=== PATIENT | female | born 1985 | race Caucasian/White ===

== ENCOUNTER 2020-09-18 04:22 | Inpatient (IN) | payer SELFPAY ==
[2020-09-18] VITALS (68 sets, daily range): BP systolic 66–202; BP diastolic 41–105; PULSE 93–131; RESP 14–36; TEMP 37–37.7; O2SAT 64–100; BMI 37.8
--- NOTE | 2020-09-18 04:27 | ECG_ITS ---
[facility] Test Date: 2020-09-18 Pat Name: Shavon Ross Department: Room: Gender: Female Rn Imcu: : 1985 Requested By: Ana Tellez Order Number: [id number] Rao MD: MIMI STRATTON Measurements Intervals [place] Rate: 122 P: 78 TN: 176 QRS: 62 QRSD: 81 T: 63 QT: 304 QTc: 434 Interpretive Statements SINUS TACHYCARDIA ABNORMAL RHYTHM ECG Compared to ECG 03/05/2018 16:36:58 Sinus rhythm no longer present Electronically Signed On 09-18-2020 17:30:57 ISOLATION WASHER by MIMI STRATTON [id number]
--- NOTE | 2020-09-18 04:27 | XRR_ITS ---
PROCEDURE INFORMATION: Exam: XR Chest, 1 View Exam date and time: 09/18/2020 4:35 AM Age: 35 years old Clinical indication: Condition or disease; Lung condition and disease; Asthma; Severity not specified; Shortness of breath; Additional info: SOB TECHNIQUE: Imaging protocol: XR of the chest Views: 1 view. COMPARISON: [facility] Chest 2 views 06/15/2019 1:56 PM FINDINGS: Lungs: Unremarkable. No consolidation. Pleural space: Unremarkable. No pleural effusion. No pneumothorax. Heart/Mediastinum: Unremarkable. No cardiomegaly. Bones/joints: Unremarkable. XR/XR chest 1V portable [id number] IMPRESSION: No acute findings.
--- NOTE | 2020-09-18 04:29 | ED_ITS ---
Documented by User: Ana Tellez MD 09/18/20 05:48 HPI - SOB/Dyspnea General: Chief Complaint: Shortness of Breath/Dyspnea Stated Complaint: asthma attack Time Seen by Provider: 09/18/20 04:24 Source: patient Mode of arrival: ambulatory Limitations: no limitations History of Present Illness: HPI Narrative: 35-year-old female has a history of asthma. She states she had increased shortness of breath and wheezing starting overnight. States she had a slight cough and congestion over the last 2 days. Patient is tachypneic here and in mild to moderate distress. She does have wheezing and oxygen level here was 90% on room air and she is currently on 2 L. She denies any fever. She states she is taking her rescue inhaler at home with minimal relief. MD elicited complaint: shortness of breath Associated symptoms: Deny abdominal pain, chest pain, fever(s), nausea or vomiting Review of Systems Const: Denies: fever(s), chills, body aches or change in appetite Eyes: Denies: blurry vision or eye discomfort ENMT: Denies: throat pain or dental pain Card: Denies: chest pain Resp: Reports: dyspnea and wheezing GI: Denies: abdominal pain, nausea, vomiting or diarrhea : Denies: dysuria Musc: Denies: neck pain or back pain Skin/Breast: Denies: rash Neuro: Denies: headache(s) Psych: Denies: depression Jamil/Lymph: Denies: easy bruising All/Imm: Denies: urticaria PFSH ED PFSH: Social History (Updated 09/18/20 @ 11:18 by Audrey Yusuf [facility]) Smoking and tobacco status: current every day smoker Alcohol intake: current Alcohol intake frequency: 3 or more drinks per day Alcohol type: beer Alcohol use comment: 7 beers per night Lives independently: Yes Household members: spouse and children Marital status: Physical Exam Const: COMMON NORMALS: patient oriented x3 GENERAL APPEARANCE: in distress HENMT: COMMON NORMALS: normocephalic and atraumatic HEAD & SCALP: normocephalic and atraumatic Eye: COMMON NORMALS: Equal, round and reactive pupils present and EOMs intact bilaterally PUPIL: Yes Equal, round and reactive pupils present Neck/C-Spine: COMMON NORMALS: full ROM and supple Chest: COMMONS NORMALS: normal inspection of the chest and normal palpation of entire chest wall Resp: COMMON NORMALS: No retractions and No use of accessory muscles EFFORT & INSPECTION: Yes tachypneic and Yes respiratory distress AUSCULTATION: wheezes Cardio: COMMON NORMALS: regular rate, regular rhythm and No murmurs present (Cardio) RATE: regular rate RHYTHM: regular rhythm GI: COMMON NORMALS: Normal to inspection, nondistended, normoactive bowel sounds present, Soft to palpation, non-tender and no masses PALPATION: Yes Soft to palpation Extremity: COMMON NORMALS: normal to inspection and full ROM Neuro: COMMON NORMALS: patient oriented x3, moves all extremities and no focal motor deficits Psych: COMMON NORMALS: mental status grossly normal, Normal thought process present and cooperative THOUGHT PROCESS: Normal thought process present Skin: COMMON NORMALS: no rashes or lesions noted and no wounds GENERAL SKIN EXAM: no rashes or lesions noted Course Vital Signs: Vital signs: Vital Signs Pulse Rate 93 09/18/20 11:11 Respiratory Rate 18 09/18/20 11:11 Blood Pressure 123/73 09/18/20 11:11 Pulse Oximetry 97 09/18/20 11:11 MDM - SOB/Dyspnea MDM Narrative: Medical decision making narrative: Shavon presents here with an asthma exacerbation. Her exacerbation is significant and she has had minimal improvement after breathing treatments. Patient is still pending a D-dimer and is signed out to dr. hearn Patient was given Solu-Medrol here as well. Patient will likely require admission. Lab Data: Labs: Lab Results 09/18/20 09/18/20 09/18/20 Range/Units 04:29 04:29 04:29 WBC 11.0 H (4.0-10.0) 10^3/ uL RBC 4.61 (4.1-5.3) 10^6/u L Hgb 9.4 L (11.5-15.3) g/dL Hct 34.0 L (37.0-47.0) % MCV 73.8 L (81-99) fL MCH 20.4 L (28.0-34.0) pg MCHC 27.6 L (30.0-36.0) g/dL RDW 15.1 (12.1-15.1) % Plt Count 321 (130-400) 10^3/c mm MPV 8.9 (7.4-10.4) fL Neut % (Auto) 86.0 % Lymph % (Auto) 6.9 % [place] % (Auto) 4.8 % Eos % (Auto) 1.2 % Baso % (Auto) 0.7 % Neut # (Auto) 9.47 H (1.8-7.7) 10^3/u L Lymph # (Auto) 0.8 (0.8-4.8) 10^3/u L [place] # (Auto) 0.5 (0.2-0.9) 10^3/u L Eos # (Auto) 0.1 (0.0-0.8) 10^3/u L Baso # (Auto) 0.1 (0.0-0.1) 10^3/u L Nucleated RBC % (a uto) 0 % Nucleated RBCs # 0.0 /100WBC D-Dimer 0.78 H (0-0.59) ug/mIFE U Specimen Type Sample Site ABG pH (7.35-7.45) ABG pCO2 (35-45) mmHg ABG pO2 (80.0-100.0) mmH g ABG HCO3 (22-26) mmol/L ABG O2 Saturation ABG Base Excess (-2.0-2.0) mmol/ L Pritesh Test A-a O2 Gradient (5-10) mmHg Hematocrit (37-47) % Hgb O2 Saturation (95-100) % Carboxyhemoglobin (0.4-20.1) %THgb Methemoglobin (0.4-1.5) % Total Hemoglobin (12-16) g/dL Ionized Calcium (1.1-1.4) mmol/L O2 Delivery Device O2 Liters/Min % FiO2 % Tidal Volume PEEP cmH20 Artificial Log Machine Operator ID Sodium 138 (136-145) mmol/L Potassium 3.9 (3.5-5.1) mmol/L Chloride 104 (98-107) mmol/L Carbon Dioxide 19 L (22-29) mmol/L Anion Gap 18.9 (5-19) BUN 11 (6-20) mg/dL Creatinine 0.6 (0.5-0.9) mg/dL GFR Calculation 112.5 (90-130) mL/min Glucose 160 H (65-115) mg/dL Calculated Osmolal ity 289 (285-295) mOsm/k g Calcium 8.6 (8.5-10.5) mg/dL Magnesium (1.7-2.3) mg/dL Total Bilirubin 0.2 (0.15-1.2) mg/dL AST 12 (0-32) U/L ALT 14 (0-33) U/L Alkaline Phosphata se 99 (35-105) IU/L NT-Pro-B Natriuret Pep 39 (0-125) pg/mL Total Protein 7.8 (6.6-8.7) g/dL Albumin 4.7 (3.5-5.2) g/dL Globulin 3.1 (1.3-4.6) g/dL Influenza Type A A g (Negative) Influenza Type B A g (Negative) SARS-CoV-2 Ag (Rap id) (Negative) 09/18/20 09/18/20 09/18/20 Range/Units 04:29 04:32 04:50 WBC (4.0-10.0) 10^3/ uL RBC (4.1-5.3) 10^6/u L Hgb (11.5-15.3) g/dL Hct (37.0-47.0) % MCV (81-99) fL MCH (28.0-34.0) pg MCHC (30.0-36.0) g/dL RDW (12.1-15.1) % Plt Count (130-400) 10^3/c mm MPV (7.4-10.4) fL Neut % (Auto) % Lymph % (Auto) % [place] % (Auto) % Eos % (Auto) % Baso % (Auto) % Neut # (Auto) (1.8-7.7) 10^3/u L Lymph # (Auto) (0.8-4.8) 10^3/u L [place] # (Auto) (0.2-0.9) 10^3/u L Eos # (Auto) (0.0-0.8) 10^3/u L Baso # (Auto) (0.0-0.1) 10^3/u L Nucleated RBC % (a uto) % Nucleated RBCs # /100WBC D-Dimer (0-0.59) ug/mIFE U Specimen Type Sample Site ABG pH (7.35-7.45) ABG pCO2 (35-45) mmHg ABG pO2 (80.0-100.0) mmH g ABG HCO3 (22-26) mmol/L ABG O2 Saturation ABG Base Excess (-2.0-2.0) mmol/ L Pritesh Test A-a O2 Gradient (5-10) mmHg Hematocrit (37-47) % Hgb O2 Saturation (95-100) % Carboxyhemoglobin (0.4-20.1) %THgb Methemoglobin (0.4-1.5) % Total Hemoglobin (12-16) g/dL Ionized Calcium (1.1-1.4) mmol/L O2 Delivery Device O2 Liters/Min % FiO2 % Tidal Volume PEEP cmH20 Artificial Log Machine Operator ID Sodium (136-145) mmol/L Potassium (3.5-5.1) mmol/L Chloride (98-107) mmol/L Carbon Dioxide (22-29) mmol/L Anion Gap (5-19) BUN (6-20) mg/dL Creatinine (0.5-0.9) mg/dL GFR Calculation (90-130) mL/min Glucose (65-115) mg/dL Calculated Osmolal ity (285-295) mOsm/k g Calcium (8.5-10.5) mg/dL Magnesium 2.2 (1.7-2.3) mg/dL Total Bilirubin (0.15-1.2) mg/dL AST (0-32) U/L ALT (0-33) U/L Alkaline Phosphata se (35-105) IU/L NT-Pro-B Natriuret Pep (0-125) pg/mL Total Protein (6.6-8.7) g/dL Albumin (3.5-5.2) g/dL Globulin (1.3-4.6) g/dL Influenza Type A A g Negative (Negative) Influenza Type B A g Negative (Negative) SARS-CoV-2 Ag (Rap id) Negative (Negative) 09/18/20 09/18/20 Range/Units 06:35 09:00 WBC (4.0-10.0) 10^3/ uL RBC (4.1-5.3) 10^6/u L Hgb (11.5-15.3) g/dL Hct (37.0-47.0) % MCV (81-99) fL MCH (28.0-34.0) pg MCHC (30.0-36.0) g/dL RDW (12.1-15.1) % Plt Count (130-400) 10^3/c mm MPV (7.4-10.4) fL Neut % (Auto) % Lymph % (Auto) % [place] % (Auto) % Eos % (Auto) % Baso % (Auto) % Neut # (Auto) (1.8-7.7) 10^3/u L Lymph # (Auto) (0.8-4.8) 10^3/u L [place] # (Auto) (0.2-0.9) 10^3/u L Eos # (Auto) (0.0-0.8) 10^3/u L Baso # (Auto) (0.0-0.1) 10^3/u L Nucleated RBC % (a uto) % Nucleated RBCs # /100WBC D-Dimer (0-0.59) ug/mIFE U Specimen Type Arterial Arterial Sample Site Radial, left Radial, left ABG pH 7.31 L 7.09 L* (7.35-7.45) ABG pCO2 42.6 81.7 H* (35-45) mmHg ABG pO2 67.1 L 193.0 H (80.0-100.0) mmH g ABG HCO3 21.5 L 24.6 (22-26) mmol/L ABG O2 Saturation 99.8 ABG Base Excess -4.5 L -5.7 L (-2.0-2.0) mmol/ L Pritesh Test Pos Pos A-a O2 Gradient 18.1 H (5-10) mmHg Hematocrit 28.8 L 27.0 L (37-47) % Hgb O2 Saturation 90.4 L 97.1 (95-100) % Carboxyhemoglobin 1.9 1.6 (0.4-20.1) %THgb Methemoglobin < 0.0 L 1.0 (0.4-1.5) % Total Hemoglobin 9.4 L 8.8 L (12-16) g/dL Ionized Calcium 1.2 (1.1-1.4) mmol/L O2 Delivery Device Nc Vent O2 Liters/Min 5.0 % FiO2 60.0 % Tidal Volume 0.40 PEEP 8.0 cmH20 Artificial Log Machine Operator ID [email or web address] [email or web address] Sodium 139.0 (136-145) mmol/L Potassium 4.5 (3.5-5.1) mmol/L Chloride (98-107) mmol/L Carbon Dioxide (22-29) mmol/L Anion Gap (5-19) BUN (6-20) mg/dL Creatinine (0.5-0.9) mg/dL GFR Calculation (90-130) mL/min Glucose 174.0 H (65-115) mg/dL Calculated Osmolal ity (285-295) mOsm/k g Calcium (8.5-10.5) mg/dL Magnesium (1.7-2.3) mg/dL Total Bilirubin (0.15-1.2) mg/dL AST (0-32) U/L ALT (0-33) U/L Alkaline Phosphata se (35-105) IU/L NT-Pro-B Natriuret Pep (0-125) pg/mL Total Protein (6.6-8.7) g/dL Albumin (3.5-5.2) g/dL Globulin (1.3-4.6) g/dL Influenza Type A A g (Negative) Influenza Type B A g (Negative) SARS-CoV-2 Ag (Rap id) (Negative) Imaging Data^: CXR: Attestation: I personally reviewed and interpreted this imaging study as follows: My impression: no acute abnormality EKG Data^: EKG 1: Attestation: I personally reviewed and interpreted this EKG as follows: EKG Interpretation Date: 09/18/20 EKG interpretation time: 04:31 Interpretation: sinus tach hr [address] or t wave abnormalities qrs 81 qtc 377 Discharge Plan Discharge Patient Disposition: Admitted As Inpatient Admit Provider: Dougie Summers Clinical Impression: Asthma with exacerbation, Acute hypoxemic respiratory failure Clinical Impression: (Ruled Out): Congestive heart failure Condition: Stable Sign Out Sign Out Data: Patient Sign Out occurred on 09/18/20 at 06:13. Patient's care was discussed, and care was transferred from to Felipe Hearn DO. Coding Level of Care Code ED [employer] for Chg Fwd Exam Comprehensive Documented by User: Felipe Hearn DO 09/18/20 11:36 HPI - SOB/Dyspnea General: Chief Complaint: Shortness of Breath/Dyspnea Stated Complaint: asthma attack Time Seen by Provider: 09/18/20 04:24 PFS ED PFSH: Social History (Updated 09/18/20 @ 11:18 by [facility] Smoking and tobacco status: current every day smoker Alcohol intake: current Alcohol intake frequency: 3 or more drinks per day Alcohol type: beer Alcohol use comment: 7 beers per night Lives independently: Yes Household members: spouse and children Marital status: Procedures Intubation Time out performed: Yes sedative: Etomidate paralytic: Succinylcholine Laryngoscope: fiber optic video scope Assist Device Used: fiber optic device ET Tube Size: 8 ET Tube Uncuffed: No Tube Secured Depth (cm): 22 Tube Secured Location: teeth Tube Placement Confirmation: visualized tube passing through cords, equal breath sounds bilaterally, no breath sounds over epigastrium and confirmation by capnometry Patient Tolerated Procedure: well Intubation Complications: none Course Vital Signs: Vital signs: Vital Signs Pulse Rate 93 09/18/20 11:11 Respiratory Rate 18 09/18/20 11:11 Blood Pressure 123/73 09/18/20 11:11 Pulse Oximetry 97 09/18/20 11:11 MDM - SOB/Dyspnea MDM Narrative: Medical decision making narrative: Patient progressively worsened with a PCO2 in the 60s despite a respiratory rate in the 40s and 50s she was electively intubated we discussed with her prior she wished to proceed. RSI and ablation with etomidate and succinylcholine patient tolerated well initially improved but her second ABG was actually worsened with a pH of 7.08 and a PCO2 in the 80s patient given further nebulizer treatments magnesium sulfate Solu-Medrol and in conjunction with Dr. Joshua Westbrook adjustments were made to her ventilator. Patient will be admitted for acute asthma exacerbation via Dr. Summers he has written order CT of the chest reviewed as well Lab Data: Labs: Lab Results 09/18/20 09/18/20 09/18/20 Range/Units 04:29 04:29 04:29 WBC 11.0 H (4.0-10.0) 10^3/ uL RBC 4.61 (4.1-5.3) 10^6/u L Hgb 9.4 L (11.5-15.3) g/dL Hct 34.0 L (37.0-47.0) % MCV 73.8 L (81-99) fL MCH 20.4 L (28.0-34.0) pg MCHC 27.6 L (30.0-36.0) g/dL RDW 15.1 (12.1-15.1) % Plt Count 321 (130-400) 10^3/c mm MPV 8.9 (7.4-10.4) fL Neut % (Auto) 86.0 % Lymph % (Auto) 6.9 % [place] % (Auto) 4.8 % Eos % (Auto) 1.2 % Baso % (Auto) 0.7 % Neut # (Auto) 9.47 H (1.8-7.7) 10^3/u L Lymph # (Auto) 0.8 (0.8-4.8) 10^3/u L [place] # (Auto) 0.5 (0.2-0.9) 10^3/u L Eos # (Auto) 0.1 (0.0-0.8) 10^3/u L Baso # (Auto) 0.1 (0.0-0.1) 10^3/u L Nucleated RBC % (a uto) 0 % Nucleated RBCs # 0.0 /100WBC D-Dimer 0.78 H (0-0.59) ug/mIFE U Specimen Type Sample Site ABG pH (7.35-7.45) ABG pCO2 (35-45) mmHg ABG pO2 (80.0-100.0) mmH g ABG HCO3 (22-26) mmol/L ABG O2 Saturation ABG Base Excess (-2.0-2.0) mmol/ L Pritesh Test A-a O2 Gradient (5-10) mmHg Hematocrit (37-47) % Hgb O2 Saturation (95-100) % Carboxyhemoglobin (0.4-20.1) %THgb Methemoglobin (0.4-1.5) % Total Hemoglobin (12-16) g/dL Ionized Calcium (1.1-1.4) mmol/L O2 Delivery Device O2 Liters/Min % FiO2 % Tidal Volume PEEP cmH20 Artificial Log Machine Operator ID Sodium 138 (136-145) mmol/L Potassium 3.9 (3.5-5.1) mmol/L Chloride 104 (98-107) mmol/L Carbon Dioxide 19 L (22-29) mmol/L Anion Gap 18.9 (5-19) BUN 11 (6-20) mg/dL Creatinine 0.6 (0.5-0.9) mg/dL GFR Calculation 112.5 (90-130) mL/min Glucose 160 H (65-115) mg/dL Calculated Osmolal ity 289 (285-295) mOsm/k g Calcium 8.6 (8.5-10.5) mg/dL Magnesium (1.7-2.3) mg/dL Total Bilirubin 0.2 (0.15-1.2) mg/dL AST 12 (0-32) U/L ALT 14 (0-33) U/L Alkaline Phosphata se 99 (35-105) IU/L NT-Pro-B Natriuret Pep 39 (0-125) pg/mL Total Protein 7.8 (6.6-8.7) g/dL Albumin 4.7 (3.5-5.2) g/dL Globulin 3.1 (1.3-4.6) g/dL Influenza Type A A g (Negative) Influenza Type B A g (Negative) SARS-CoV-2 Ag (Rap id) (Negative) 09/18/20 09/18/20 09/18/20 Range/Units 04:29 04:32 04:50 WBC (4.0-10.0) 10^3/ uL RBC (4.1-5.3) 10^6/u L Hgb (11.5-15.3) g/dL Hct (37.0-47.0) % MCV (81-99) fL MCH (28.0-34.0) pg MCHC (30.0-36.0) g/dL RDW (12.1-15.1) % Plt Count (130-400) 10^3/c mm MPV (7.4-10.4) fL Neut % (Auto) % Lymph % (Auto) % [place] % (Auto) % Eos % (Auto) % Baso % (Auto) % Neut # (Auto) (1.8-7.7) 10^3/u L Lymph # (Auto) (0.8-4.8) 10^3/u L [place] # (Auto) (0.2-0.9) 10^3/u L Eos # (Auto) (0.0-0.8) 10^3/u L Baso # (Auto) (0.0-0.1) 10^3/u L Nucleated RBC % (a uto) % Nucleated RBCs # /100WBC D-Dimer (0-0.59) ug/mIFE U Specimen Type Sample Site ABG pH (7.35-7.45) ABG pCO2 (35-45) mmHg ABG pO2 (80.0-100.0) mmH g ABG HCO3 (22-26) mmol/L ABG O2 Saturation ABG Base Excess (-2.0-2.0) mmol/ L Pritesh Test A-a O2 Gradient (5-10) mmHg Hematocrit (37-47) % Hgb O2 Saturation (95-100) % Carboxyhemoglobin (0.4-20.1) %THgb Methemoglobin (0.4-1.5) % Total Hemoglobin (12-16) g/dL Ionized Calcium (1.1-1.4) mmol/L O2 Delivery Device O2 Liters/Min % FiO2 % Tidal Volume PEEP cmH20 Artificial Log Machine Operator ID Sodium (136-145) mmol/L Potassium (3.5-5.1) mmol/L Chloride (98-107) mmol/L Carbon Dioxide (22-29) mmol/L Anion Gap (5-19) BUN (6-20) mg/dL Creatinine (0.5-0.9) mg/dL GFR Calculation (90-130) mL/min Glucose (65-115) mg/dL Calculated Osmolal ity (285-295) mOsm/k g Calcium (8.5-10.5) mg/dL Magnesium 2.2 (1.7-2.3) mg/dL Total Bilirubin (0.15-1.2) mg/dL AST (0-32) U/L ALT (0-33) U/L Alkaline Phosphata se (35-105) IU/L NT-Pro-B Natriuret Pep (0-125) pg/mL Total Protein (6.6-8.7) g/dL Albumin (3.5-5.2) g/dL Globulin (1.3-4.6) g/dL Influenza Type A A g Negative (Negative) Influenza Type B A g Negative (Negative) SARS-CoV-2 Ag (Rap id) Negative (Negative) 09/18/20 09/18/20 Range/Units 06:35 09:00 WBC (4.0-10.0) 10^3/ uL RBC (4.1-5.3) 10^6/u L Hgb (11.5-15.3) g/dL Hct (37.0-47.0) % MCV (81-99) fL MCH (28.0-34.0) pg MCHC (30.0-36.0) g/dL RDW (12.1-15.1) % Plt Count (130-400) 10^3/c mm MPV (7.4-10.4) fL Neut % (Auto) % Lymph % (Auto) % [place] % (Auto) % Eos % (Auto) % Baso % (Auto) % Neut # (Auto) (1.8-7.7) 10^3/u L Lymph # (Auto) (0.8-4.8) 10^3/u L [place] # (Auto) (0.2-0.9) 10^3/u L Eos # (Auto) (0.0-0.8) 10^3/u L Baso # (Auto) (0.0-0.1) 10^3/u L Nucleated RBC % (a uto) % Nucleated RBCs # /100WBC D-Dimer (0-0.59) ug/mIFE U Specimen Type Arterial Arterial Sample Site Radial, left Radial, left ABG pH 7.31 L 7.09 L* (7.35-7.45) ABG pCO2 42.6 81.7 H* (35-45) mmHg ABG pO2 67.1 L 193.0 H (80.0-100.0) mmH g ABG HCO3 21.5 L 24.6 (22-26) mmol/L ABG O2 Saturation 99.8 ABG Base Excess -4.5 L -5.7 L (-2.0-2.0) mmol/ L Pritesh Test Pos Pos A-a O2 Gradient 18.1 H (5-10) mmHg Hematocrit 28.8 L 27.0 L (37-47) % Hgb O2 Saturation 90.4 L 97.1 (95-100) % Carboxyhemoglobin 1.9 1.6 (0.4-20.1) %THgb Methemoglobin < 0.0 L 1.0 (0.4-1.5) % Total Hemoglobin 9.4 L 8.8 L (12-16) g/dL Ionized Calcium 1.2 (1.1-1.4) mmol/L O2 Delivery Device Nc Vent O2 Liters/Min 5.0 % FiO2 60.0 % Tidal Volume 0.40 PEEP 8.0 cmH20 Artificial Log Machine Operator ID [email or web address] [email or web address] Sodium 139.0 (136-145) mmol/L Potassium 4.5 (3.5-5.1) mmol/L Chloride (98-107) mmol/L Carbon Dioxide (22-29) mmol/L Anion Gap (5-19) BUN (6-20) mg/dL Creatinine (0.5-0.9) mg/dL GFR Calculation (90-130) mL/min Glucose 174.0 H (65-115) mg/dL Calculated Osmolal ity (285-295) mOsm/k g Calcium (8.5-10.5) mg/dL Magnesium (1.7-2.3) mg/dL Total Bilirubin (0.15-1.2) mg/dL AST (0-32) U/L ALT (0-33) U/L Alkaline Phosphata se (35-105) IU/L NT-Pro-B Natriuret Pep (0-125) pg/mL Total Protein (6.6-8.7) g/dL Albumin (3.5-5.2) g/dL Globulin (1.3-4.6) g/dL Influenza Type A A g (Negative) Influenza Type B A g (Negative) SARS-CoV-2 Ag (Rap id) (Negative) Critical Care Time Critical Care Time: Critical Care Time: Yes Total Critical Care Time: 245 Attestation: This case had a high probability of a clinically significant, sudden, or life threatening deterioration of this patient's condition which required my full and direct attention, intervention and personal management. Discharge Plan Discharge Patient Disposition: Admitted As Inpatient Admit Provider: Dougie Summers Clinical Impression: Asthma with exacerbation, Acute hypoxemic respiratory failure Clinical Impression: (Ruled Out): Congestive heart failure Condition: Stable Sign Out Sign Out Data: Patient Sign Out occurred on 09/18/20 at 06:13. Patient's care was discussed, and care was transferred from to Felipe Hearn DO. Coding Level of Care Code ED [employer] for Chg Fwd Exam Comprehensive
[2020-09-18 04:37] LABS: Basophils # 0.1 10^3/uL (0.0-0.1); Basophils % 0.7 %; Eosinophils # 0.1 10^3/uL (0.0-0.8); Eosinophils % 1.2 %; Hemoglobin 9.4 g/dL (11.5-15.3); Lymphocytes # 0.8 10^3/uL (0.8-4.8); Lymphocytes % 6.9 %; Mean Corpuscular HGB Conc 27.6 g/dL (30.0-36.0); Mean Corpuscular Hemoglobin 20.4 pg (28.0-34.0); Mean Corpuscular Volume 73.8 fL (81-99); Mean Platelet Volume 8.9 fL (7.4-10.4); Monocytes # 0.5 10^3/uL (0.2-0.9); Monocytes % 4.8 %; Neutrophils # 9.47 10^3/uL (1.8-7.7); Nucleated Red Blood Cells % 0 %; Platelet Count 321 10^3/cmm (130-400); Red Blood Count 4.61 10^6/uL (4.1-5.3); Red Cell Distribution Width 15.1 % (12.1-15.1)
[2020-09-18] MEDS: albuterol 8 gm MDI 4 PUFF INHALATION (04:41)
[2020-09-18] MEDS: sodium chloride 0.9% 500 ML 999 ML IV ×2 (04:48→13:28)
[2020-09-18] MEDS: ondansetron 2 mg/ML SDV 2 mL 4 MG IVP (04:52)
[2020-09-18 04:55] LABS: SARS Covid-2 Antigen Negative (Negative)
[2020-09-18 05:00] LABS: Alanine Aminotransferase 14 U/L (0-33); Albumin Level 4.7 g/dL (3.5-5.2); Alkaline Phosphatase 99 IU/L (35-105); Anion Gap 18.9 (5-19); Aspartate Amino Transferase 12 U/L (0-32); Blood Urea Nitrogen 11 mg/dL (6-20); Calcium 8.6 mg/dL (8.5-10.5); Carbon Dioxide 19 mmol/L (22-29); Chloride 104 mmol/L (98-107); Globulin 3.1 g/dL (1.3-4.6); Glomerular Filtration Rate 112.5 mL/min (90-130); Glucose 160 mg/dL (65-115); NT Pro B Type Natriuretic Pept 39 pg/mL (0-125); Osmolality Calculated 289 mOsm/kg (285-295); Potassium 3.9 mmol/L (3.5-5.1); Sodium 138 mmol/L (136-145); Total Bilirubin 0.2 mg/dL (0.15-1.2); Total Protein 7.8 g/dL (6.6-8.7)
[2020-09-18 05:38] LABS: Influenza A by IFA Negative (Negative); Influenza B by IFA Negative (Negative)
[2020-09-18 05:51] LABS: D Dimer 0.78 ug/mIFEU (0-0.59)
--- NOTE | 2020-09-18 06:14 | CT_ITS ---
WS: [id number] CTA OF THE CHEST WITH PULMONARY EMBOLISM PROTOCOL TECHNIQUE: High-resolution contrast enhanced CTA of the chest with coronal and sagittal reformatted i mages with pulmonary embolism protocol. MIP images are also reviewed. CLINICAL INFORMATION: dyspnea/elevate D dimer COMPARISON: None. DLP: 1544.[address] scans at [facility] use at least one of these dose optimization techniques: automat ed exposure control; mA and/or kV adjustment per patient size (includes targeted exams where dose is matched to clinical indication); or iterative reconstruction. FINDINGS: Lungs are well aerated. No acute pulmonary infiltrates. No focal pneumonia. No pleural fluid. Endotra cheal tube with tip above the jaciel. Enteric tube with tip in stomach. Suboptimal bolus. Proximal main pulmonary arteries are normal. Segmental pulmonary arteries appear pa tent. Subsegmental pulmonary arteries not well visualized due to suboptimal bolus and breathing artif act. No definite evidence of pulmonary embolus. Normal caliber thoracic aorta. No mediastinal or hilar lymphadenopathy. No axillary lymphadenopathy. Adrenal glands are normal. Diffuse fatty infiltration the liver. Slight asymmetric enlargement of the left thyroid lobe compared to the right. This can be followed up with ultrasound on an elective basi s. CT/CT angio chest PE protcl [id number] IMPRESSION: 1. Suboptimal bolus but no definite evidence of pulmonary embolus. Subsegmenta l pulmonary arteries not well visualized. Recommend repeat CTA chest if symptom s persist. 2. No acute pulmonary infiltrates. Lungs well aerated. 3. Endotracheal tube and enteric tube in good position. 4. Diffuse fatty infiltration liver. Notified Felipe Artis DO at 09/18/2020 9:37 AM.
[2020-09-18] MEDS: ipratropium-albuterol 3 mL Neb INHALATION ×5 (06:29→20:11)
[2020-09-18 06:45] LABS: ABG PCO2 42.6 mmHg (35-45); ABG PH Result 7.31 (7.35-7.45); Arterial Blood Gas Hematocrit 28.8 % (37-47); Base Excess ABG -4.5 mmol/L (-2.0-2.0); Blood Gas Allen Test Pos; Blood Gas Sample Site Radial, left; Blood Gas Sample Type Arterial; Carboxyhemoglobin 1.9 %THgb (0.4-20.1); HCO3 ABG 21.5 mmol/L (22-26); HGB O2 Sat 90.4 % (95-100); Methemoglobin < 0.0 % (0.4-1.5); Oxygen Device NC; PO2 ABG 67.1 mmHg (80.0-100.0); Total Hemoglobin 9.4 g/dL (12-16)
[2020-09-18] MEDS: LORazepam 2 mg/mL INJ 1 mL 1 MG IVP ×2 (07:00→17:56)
[2020-09-18] MEDS: succinylcholine 20 mg/mL SDV 10mL 100 MG IVP (07:03)
--- NOTE | 2020-09-18 07:04 | PC.NURSE ---
Patient was intubated at this time with a size 8.0 ET tube at 22 at the teeth.
[2020-09-18] MEDS: vecuronium 10 mg SDV IVP ×2 (07:07→09:15)
[2020-09-18] MEDS: propofol 1,000 MG/100 ML INJ 24 MG IV (07:10)
--- NOTE | 2020-09-18 07:14 | XRR_ITS ---
PROCEDURE INFORMATION: Exam: XR Chest, 1 View Exam date and time: 09/18/2020 7:34 AM Age: 35 years old Clinical indication: Cough and dyspnea; Patient HX: PT intubated; Additional info: Dyspnea/cough TECHNIQUE: Imaging protocol: XR of the chest Views: 1 view. COMPARISON: CR XR chest 1V portable [id number] 09/18/2020 4:34 AM FINDINGS: Tubes, catheters and devices: The endotracheal tube is above the level of the jaciel. nasogastric tube extends below the diaphragm although the location of the tip not identified as it is outside of the [id number]. Lungs: Lungs are well aerated without a focal area of consolidation. Pleural space: Unremarkable. No pleural effusion. No pneumothorax. Heart/Mediastinum: Unremarkable. No cardiomegaly. Bones/joints: Unremarkable. XR/XR chest 1V portable [id number] IMPRESSION: Lungs are well aerated without a focal area of consolidation.
[2020-09-18] MEDS: ipratropium-albuterol 3 mL Neb 6 ML INHALATION (07:28)
[2020-09-18] MEDS: iohexol 350 mg/mL 100 mL Btl IV ×2 (09:00→09:01)
[2020-09-18 09:13] LABS: Alveolar-Arterial Oxygen Gradi 18.1 mmHg (5-10); Base Excess ABG -5.7 mmol/L (-2.0-2.0); Blood Gas Allen Test Pos; Blood Gas Operator Identificat glc; Blood Gas Sample Site Radial, left; Blood Gas Sample Type Arterial; Carboxyhemoglobin 1.6 %THgb (0.4-20.1); HCO3 ABG 24.6 mmol/L (22-26); HGB O2 Sat 97.1 % (95-100); Ionized Calcium Level - ABG 1.2 mmol/L (1.1-1.4); Oxygen Device VENT; Oxygen Saturation ABG 99.8; Potassium Level - ABG 4.5 mmol/L (3.5-5.0); Total Hemoglobin 8.8 g/dL (12-16)
[2020-09-18 09:14] LABS: ABG PH Result 7.09 (7.35-7.45)
[2020-09-18 09:15] LABS: ABG PCO2 81.7 mmHg (35-45)
[2020-09-18] MEDS: EPINEPHrine 1 mg/mL INJ 0.3 MG IM (09:45)
[2020-09-18] MEDS: nitroglycerin 1 gm/inch oint Pkt 1 INCH TOPICAL (09:50)
[2020-09-18] MEDS: fentaNYL 50 mcg/mL INJ 2mL 100 MCG IVP (10:05)
[2020-09-18] MEDS: magnesium sulfate premix 2 GM/50 ML PIGGYBACK IV (10:05)
[2020-09-18] MEDS: sodium chloride 0.9% 1,000 ML 999 ML IV (10:13)
[2020-09-18 10:52] LABS: Magnesium 2.2 mg/dL (1.7-2.3)
--- NOTE | 2020-09-18 11:06 | PM.HP ---
Providers/Chief Complaint Admitting Physician: Dougie Summers MD Chief Complaint: asthma attack History of Present Illness Shavon Ross is a 35 year old female w/ h/o asthma and untreated hypertension who presented to the ED at 4 am this morning for asthma exacerbation, with SOB and wheezing. Pt stated that she felt tightness in her chest yesterday, and had slight cough and congestion for the past 2 days. She believes her home air freshner had been irritating her. She denies fevers, chills, recent illness, Covid. Currently she is on a ventilator after decompensating later this morning and is unconscious, which limited physical exam. She is being given fluids and bronchodilators as per asthma exacerbation guidelines. We were able to receive more of the patient's history from her . Patient is currently child at home; her is concerned that she will be uncomfortable because of that. Review of Systems General: Reports: 10 or more systems reviewed and unremarkable except in HPI and below GI: Reports: hematochezia (occasional) Medications/Allergies Home Medications Medication Instructions Recorded Confirmed Last Taken Type albuterol sulfate 2.5 mg INHALATION Q6H PRN 09/18/20 09/18/20 Unknown History albuterol sulfate [ProAir HFA] 2 puff INHALATION Q4H PRN 09/18/20 09/18/20 Unknown History budesonide 0.5 mg INHALATION PRN 09/18/20 09/18/20 Unknown History cetirizine [Zyrtec] 10 mg PO DAILY PRN 09/18/20 09/18/20 Unknown History fluticasone furoate-vilanterol 1 inh INHALATION DAILY 09/18/20 09/18/20 Unknown History [Breo Ellipta] norethindrone (contraceptive) 0.35 mg PO . DIRECTED 09/18/20 09/18/20 Unknown History Allergies Allergy/AdvReac Type Severity Reaction Status Date / Time No Known Allergies Allergy Verified 09/18/20 09:30 PFSH Acute PFSH: Social History (Updated 09/18/20 @ 11:18 by [facility] Smoking and tobacco status: current every day smoker Alcohol intake: current Alcohol intake frequency: 3 or more drinks per day Alcohol type: beer Alcohol use comment: 7 beers per night Lives independently: Yes Household members: spouse and children Marital status: Supplemental PFSH Information: No significant family history Vitals/I&O/Wt Last Vital Signs Pulse 94 09/18/20 11:00 Resp 18 09/18/20 11:00 BP 128/69 09/18/20 11:00 Pulse Ox 97 09/18/20 11:00 09/17/20 09/18/20 09/18/20 22:59 06:59 14:59 Intake Total 500 / 500 35.2 / 35.2 Balance 500 / 500 35.2 / 35.2 Weight last 48 hrs Weight 99.79 kg Physical Exam Const: EXAM LIMITATIONS: altered mental status GENERAL APPEARANCE: in distress, ill appearing, diaphoretic and patient mechanically ventilated NUTRITIONAL APPEARANCE: obese ORIENTATION/CONSCIOUSNESS: Yes Other orientation findings OTHER: Unconscious Resp: EFFORT & INSPECTION: Yes respiratory distress AUSCULTATION: wheezes Cardio: COMMON NORMALS: no JVD, regular rhythm, S1 normal heart sound present, S2 normal heart sound present, No gallops present (Cardio), No clicks present (Cardio), No murmurs present (Cardio), No rub (Cardio) and Peripheral pulses 2+ throughout PALPATION: normal PMI RATE: tachycardic Urinary Catheter Management^: Estrada: Cath Placed During This Visit: no Data : 09/18/20 04:29 09/18/20 04:29 Attestations Medical Necessity Statement*: Will require greater than 2 midnight stay for evaluation and treatment of respiratory failure secondary to asthma exacerbation. 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
[2020-09-18 11:11] LABS: Lactic Sepsis W/Reflex 1.4 mmol/L (0.5-2.2)
[2020-09-18] MEDS: propofol 1,000 MG/100 ML INJ 44.9 MG IV (11:40)
[2020-09-18 12:02] LABS: Alveolar-Arterial Oxygen Gradi 25.1 mmHg (5-10); Arterial Blood Gas Hematocrit 28.2 % (37-47); Base Excess ABG -5.7 mmol/L (-2.0-2.0); Blood Gas Operator Identificat LUNSA; Blood Gas Sample Site Brachial, left; Blood Gas Sample Type Arterial; Blood Gas Tidal Volume 0.45; Carboxyhemoglobin 1.6 %THgb (0.4-20.1); HCO3 ABG 23.5 mmol/L (22-26); HGB O2 Sat 97.4 % (95-100); Ionized Calcium Level - ABG 1.2 mmol/L (1.1-1.4); Methemoglobin 0.8 % (0.4-1.5); Oxygen Device VENT; Oxygen Saturation ABG 99.8; Potassium Level - ABG 5.3 mmol/L (3.5-5.0); Total Hemoglobin 9.2 g/dL (12-16)
[2020-09-18 12:06] LABS: ABG PH Result 7.15 (7.35-7.45)
[2020-09-18 12:07] LABS: ABG PCO2 68.3 mmHg (35-45)
[2020-09-18] MEDS: enoxaparin 40 mg/0.4 mL Syringe SUBCUT (12:31)
[2020-09-18] MEDS: famotidine 20 mg/2 mL INJ IVP ×2 (12:31→23:34)
[2020-09-18] MEDS: sodium chloride 0.9% 1,000 ML 75 ML IV ×3 (12:32→18:44)
[2020-09-18 12:38] LABS: Lactate (Lactic Acid level) 2.2 mmol/L (0.5-2.2)
--- NOTE | 2020-09-18 12:40 | P.HP_ITS ---
Providers/Chief Complaint Admitting Physician: Dougie Summers MD Chief Complaint: asthma attack History of Present Illness Shavon Ross is a 35 year old female that presents to the emergency department with significant shortness of breath occurring since yesterday. Obtained from her as she is currently intubated. Apparently she has had longstanding asthma since a child. She has never had any intubations. Yesterday she had increasing shortness of breath and wheezing. She thought this was secondary to some [place] air fresheners in the house so these were taken down. She worsened through the night and came to the ER. She has had no fever, history of Covid, or exposure to Covid. In the emergency department she was given nebulized treatments, and when this failed she was intubated. She was also given epinephrine, magnesium, and an Aminophyllin load was initiated. Secondary to poor synchronization with the ventilator, and requirement for high FiO2 levels and CO2 retention she was paralyzed. Review of Systems General: Reports: ROS unobtainable due to endotracheal tube ( did reports she occasionally will see blood in her stool.) Medications/Allergies Home Medications Medication Instructions Recorded Confirmed Last Taken Type albuterol sulfate 2.5 mg INHALATION Q6H PRN 09/18/20 09/18/20 Unknown History albuterol sulfate [ProAir HFA] 2 puff INHALATION Q4H PRN 09/18/20 09/18/20 Unknown History budesonide 0.5 mg INHALATION PRN 09/18/20 09/18/20 Unknown History cetirizine [Zyrtec] 10 mg PO DAILY PRN 09/18/20 09/18/20 Unknown History fluticasone furoate-vilanterol 1 inh INHALATION DAILY 09/18/20 09/18/20 Unknown History [Breo Ellipta] norethindrone (contraceptive) 0.35 mg PO . DIRECTED 09/18/20 09/18/20 Unknown History Allergies Allergy/AdvReac Type Severity Reaction Status Date / Time No Known Allergies Allergy Verified 09/18/20 09:30 PFSH Acute PFSH: Medical History (Updated 09/18/20 @ 12:49 by Dougie Summers MD) Asthma Hypertension Surgical History (Updated 09/18/20 @ 12:42 by Dougie Summers MD) H/O partial thyroidectomy Social History (Updated 09/18/20 @ 11:18 by Audrey Yusuf [facility]) Smoking and tobacco status: current every day smoker Alcohol intake: current Alcohol intake frequency: 3 or more drinks per day Alcohol type: beer Alcohol use comment: 7 beers per night Lives independently: Yes Household members: spouse and children Marital status: Supplemental [facility] Information: Currently breast-feeding. denies any knowledge of family history of medical issues. Vitals/I&O/Wt Last Vital Signs Pulse 93 09/18/20 11:11 Resp 18 09/18/20 11:11 BP 123/73 09/18/20 11:11 Pulse Ox 97 09/18/20 11:11 09/17/20 09/18/20 09/18/20 22:59 06:59 14:59 Intake Total 500 / 500 104.75 / 104.75 Balance 500 / 500 104.75 / 104.75 Weight last 48 hrs Weight 99.79 kg Physical Exam Narrative: EXAM NARRATIVE: General exam is an intubated and sedated female, in no apparent distress HEENT: Pupils equally round. Oropharynx with endotracheal tube Neck is supple no lymphadenopathy or thyromegaly Cardiovascular initially tachycardic, now regular rate and rhythm without murmur Lungs diminished breath sounds bilaterally. Difficult to hear any wheezing. Significantly poor air movement. Abdomen is soft nontender with positive bowel sounds. No obvious organomegaly was deferred Extremities no cyanosis clubbing or edema, cap refill brisk Skin no rash Neuro unable to assess as patient is currently sedated, and paralyzed on the ventilator. Urinary Catheter Management^: Estrada: Cath Placed During This Visit: no Data : 09/18/20 04:29 09/18/20 04:29 Other data: Chest x-ray shows no infiltrate CTA demonstrates no pulmonary embolism Initial pH 7.31, then decreased to 7.09, and now 7.15. Last PCO2 68, PO2 154 Lactic acid 1.4 LFTs normal TSH pending Rapid Covid and influenza negative. PCR Covid pending EKG demonstrated sinus tachycardia with a rate of 120, normal axis, no acute changes A&P Assessment and plan (1) Asthma with exacerbation: Intubated, to the ICU Changed to Versed and fentanyl for sedation Secondary to desynchronization with the ventilator will place on paralytic continuous drip Appreciate pulmonary critical care consultation She is already received epinephrine, magnesium, appropriate beta agonist in the emergency department Continue DuoNeb every 4 hours Albuterol every 2 hours x2 as lactic acid level normal Medrol 125 mg IV every 6 hours Inhaled steroid Status: Acute (2) Acute hypoxemic respiratory failure: See above Status: Acute (3) Microcytic anemia: Anemia neck band setter for any bleeding as we will be placing her on Lovenox for DVT prophylaxis Status: Acute (4) Tobacco dependency: Encourage cessation Status: Acute Additional A&P Information Significant alcohol use. Will need to monitor for withdrawal. Add thiamine. Note she is on a Versed drip History of partial thyroidectomy. Awaiting TSH History of hypertension. Continue to monitor Full code Lovenox for DVT prophylaxis Pepcid for GI prophylaxis Attestations Medical Necessity Statement*: Will require greater than 2 midnight stay for treatment of asthma exacerbation with acute respiratory failure Time Spent in Patient Care: Greater than 35 minutes Critical Care Time: 54 minutes spent in critical care time at bedside evaluating the patient, discussing with subspecialist and ER physician in this patient acutely ill with respiratory failure and asthma exacerbation with high risk of decompensation and/or . 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
[2020-09-18 12:53] LABS: Procalcitonin 0.09 ng/mL (0-0.5); Thyroid Stimulating Hormone 0.55 uIU/mL (0.27-4.20)
[2020-09-18 13:04] LABS: Anion Gap 17.4 (5-19); Blood Urea Nitrogen 10 mg/dL (6-20); Calcium 8.1 mg/dL (8.5-10.5); Carbon Dioxide 21 mmol/L (22-29); Chloride 104 mmol/L (98-107); Glomerular Filtration Rate 112.5 mL/min (90-130); Glucose 205 mg/dL (65-115); Magnesium 2.7 mg/dL (1.7-2.3); Osmolality Calculated 289 mOsm/kg (285-295); Potassium 5.4 mmol/L (3.5-5.1); Sodium 137 mmol/L (136-145)
--- NOTE | 2020-09-18 13:25 | P.CONIM_ITS ---
Providers/Reason For Consult Consulting Physican/Specialty*: Salvador Moses MD/Pulmology Reason for Consult*: Acute hypercapnic respiratory failure secondary to severe asthma exacerbation Requesting Marccian: Dr. Artis Attending Physician: Dougie Summers MD History of Present Illness History of Present Illness Shavon Ross is a 35 year old female with PMH asthma, tobacco dependency, microcytic anemia presented to ED with significant shortness of breath started yesterday. Patient was intubated for acute hypercapnic respiratory failure due to severe asthma. Based on the history obtained from patient has childhood asthma, never intubated, likely secondary to some [place] air fresheners in the house, worsening throughout the night and came to ER. Denied any fever or exposure to Covid. Received multiple nebulized treatments with no improvement and was intubated, given epinephrine, magnesium and aminophylline load was initiated. Pulmonary consult called after intubation ABG showed pH 7.09/CO2 81. Patient noted to be in asynchrony with ventilator and so recommended to induce deep sedation with fentanyl and Versed, if needed add propofol and then paralyzed. Meanwhile ventilator settings were adjusted in such a way to give more expiratory time and repeat ABG noted to be slightly better with pH 7.15 and CO2 68. CTA ruled out PE with no acute pulmonary infiltrates. Patient was transferred to ICU. Review of Systems General: Reports: 10 or more systems reviewed and unremarkable except in HPI and below, ROS unobtainable due to endotracheal tube and ROS unobtainable due to mental status Meds/Allergies Home Medications and Allergies Home Medications Medication Instructions Recorded Confirmed Last Taken Type albuterol sulfate 2.5 mg INHALATION Q6H PRN 09/18/20 09/18/20 Unknown History albuterol sulfate [ProAir HFA] 2 puff INHALATION Q4H PRN 09/18/20 09/18/20 Unknown History budesonide 0.5 mg INHALATION PRN 09/18/20 09/18/20 Unknown History cetirizine [Zyrtec] 10 mg PO DAILY PRN 09/18/20 09/18/20 Unknown History fluticasone furoate-vilanterol 1 inh INHALATION DAILY 09/18/20 09/18/20 Unknown History [Breo Ellipta] norethindrone (contraceptive) 0.35 mg PO . DIRECTED 09/18/20 09/18/20 Unknown History Allergies Allergy/AdvReac Type Severity Reaction Status Date / Time No Known Allergies Allergy Verified 09/18/20 09:30 Current Medications Current Medications Generic Name Dose Route Start Last Admin Trade Name Taylor PRN Reason Stop Dose Admin Enoxaparin Sodium 40 mg 09/18/20 13:00 09/18/20 12:31 Enoxaparin 40 Mg/0.4 Ml Syringe SUBCUT 40 mg Q24H TRICIA Administration Famotidine 20 mg 09/18/20 11:48 09/18/20 12:31 Famotidine 20 Mg/2 Ml Inj IVP 20 mg Q12H TRICIA Administration Fentanyl 1,000 mcg/ Sodium 100 mls @ 0 mls/hr 09/18/20 10:15 09/18/20 11:30 Chloride IV 100 mcg/hr .Q0M TRICIA 10 mls/hr Titration Protocol Per Protocol Sodium Chloride 1,000 mls @ 75 mls/hr 09/18/20 11:48 09/18/20 12:32 Sodium Chloride 0.9% IV 75 mls/hr .[id number] TRICIA Administration Midazolam HCl 100 mg/ Sodium 100 mls @ 0 mls/hr 09/18/20 12:45 09/18/20 13:14 Chloride IV 2 mg/hr .Q0M TRICIA 2 mls/hr Administration Protocol Per Protocol Methylprednisolone Sodium Succinate 125 mg 09/18/20 11:00 09/18/20 10:53 Methylprednisolone Sod Succ 125 Mg/2 Ml Inj IVP 125 mg Q6H TRICIA Administration PFSH Acute PFSH: Medical History Asthma Hypertension Surgical History H/O partial thyroidectomy Social History Smoking and tobacco status: current every day smoker Alcohol intake: current Alcohol intake frequency: 3 or more drinks per day Alcohol type: beer Alcohol use comment: 7 beers per night Lives independently: Yes Household members: spouse and children Marital status: Vitals/I&O/Wt Last Vital Signs Pulse 93 09/18/20 11:11 Resp 26 H 09/18/20 12:46 BP 123/73 09/18/20 11:11 Pulse Ox 97 09/18/20 11:11 09/17/20 09/18/20 09/18/20 22:59 06:59 14:59 Intake Total 500 / 500 104.75 / 104.75 Balance 500 / 500 104.75 / 104.75 Weight last 48 hrs Weight 220 lb Physical Exam Narrative: EXAM NARRATIVE: PHYSICAL EXAM: General: lying in bed, sedated and intubated. HEENT:NCAT, PERRLA, EOMI Neck: Supple Lungs: Bilateral diffuse end expiratory wheeze Heart: s1/s2, RRR Abd: soft, NT, ND, BS + Normoactive Extremities: No edema SAMPLE DRILLER: sedated and limited SAMPLE DRILLER exam possible. SKIN: no rash Urinary Catheter Management^: Estrada: Cath Placed During This Visit: no Data Other Data: Other data: Reviewed labs, imaging, other investigations in [employer] A&P Assessment and plan (1) Acute hypercapnic respiratory failure: Status: Acute (2) Asthma with exacerbation: Status: Acute Qualifiers: Asthma severity: severe Asthma persistence: unspecified Qualified Code(s): J45.901 - Unspecified asthma with (acute) exacerbation (3) Tobacco dependency: Status: Acute (4) Chronic alcoholism: Status: Acute (5) Patient ventilator dyssynchrony: Status: Acute #Acute hypercapnic respiratory failure in patient with history of childhood asthma-intubated and mechanically ventilated #Severe asthma exacerbation likely secondary to ?? [place] aerosol exposure #Ventilator dyssynchrony #Chronic smoker - ABG before intubation 7.3 /67/20 1/90% on 5 L nasal cannula -Multiple DuoNeb nebulizations, magnesium sulfate, epinephrine, aminophylline loading dose given in ED and intubated -Currently on CMV 400/18/8/60% FiO2 but ventilator dyssynchrony notedvent when paralytic pushes or tapering off -recommended to do deep sedation with fentanyl, Versed and if needed propofol and start on paralytic -Increased expiration time and tidal volume from 400-4 50 and noted slight improvement in ABG 7.1 /154/20 3/99% on 450/18/8/60% FiO2 -White count 11 K, procalcitonin 0.09, lactate 2.[address] chest essentially ruled out infection -Solu-Medrol 125 mg given in ED -Recommended DuoNeb nebulization every 4 scheduled and methylprednisone 60 every 8 and taper gradually based on clinical response -Continue vent settings at 450/18/8/60% FiO2 and I time 0.7 seconds while adequately sedating/paralyzing patient -start azithromycin as it covers atypical infections and also acts as anti- inflammatory - Once pH is normalized slowly tapered on sedation/paralysis and try awakening and extubation trials -We will mitochondrial disorders counselor to quit smoking once she is extubated and awake -She is on Breo, albuterol as needed, budesonide inhalation as outpatient -We will follow-up in pulmonary clinic after discharge # Chronic alcoholism - drinks atleast 3 beers per day -Recommended to put on Versed drip and Ativan 2 mg every 6 as needed - Monitor for signs of withdrawal -Monitor electrolytes and replace -Multivitamin/folic acid/thiamine Recommendations conveyed to hospitalist covering the patient. Consult Attestations Medical Necessity Statement: Acute hypercapnic respiratory failure secondary to severe asthma exacerbation due to aerosol exposure-intubated today and remains on ventilator. Time Spent in Patient Care: Greater than 35 minutes (>than 50% of time spent in counselling and/or direct pt care on unit) . Critical Care Time: Critical Care Time (min): 45 Coding Level of Care Code New Pt Acute Action Installer for Chg Fwd Patient Type New History Comprehensive Exam Comprehensive Medical Decision Making Moderate Complexity Diagnoses Acute hypercapnic respiratory failure J96.02 Asthma with exacerbation J45.901 Asthma severity: severe Asthma persistence: unspecified Tobacco dependency F17.200 Chronic alcoholism F10.20 Patient ventilator dyssynchrony J95.859 Time Spent (min) 45
--- NOTE | 2020-09-18 13:30 | PC.NURSE ---
Reza, pharmacist, called down to ICU for Vec dosage clarification. Charge nurse also clarified 10mg vial.
[2020-09-18 13:32] LABS: Ferritin 6 ng/mL (15-150); Iron 16 ug/dL (37-145); Percent Saturation 3.1 % (20-50); Total Iron Binding Capacity 508 mcg/dl; Unsaturated Iron Binding 492 ug/dL (112-347)
[2020-09-18 13:48] LABS: Vitamin B12 420 pg/mL (232-1245)
[2020-09-18 13:49] LABS: Folate Level 17.4 ng/mL (4.8-37.3)
--- NOTE | 2020-09-18 14:30 | PC.NURSE ---
Pt is requiring additional sedation. Dr Summers notified of pt's BIS monitoring and sedation dosages. Diprovan orders received and orders to increase Versed and Vec.
[2020-09-18 16:00] LABS: ABG PCO2 59.1 mmHg (35-45); ABG PH Result 7.18 (7.35-7.45); Alveolar-Arterial Oxygen Gradi 26.9 mmHg (5-10); Arterial Blood Gas Hematocrit 25.2 % (37-47); Base Excess ABG -6.4 mmol/L (-2.0-2.0); Blood Gas Allen Test Pos; Blood Gas Operator Identificat BD; Blood Gas Sample Site Brachial, right; Blood Gas Sample Type Arterial; Blood Gas Tidal Volume 0.45; Carboxyhemoglobin 1.5 %THgb (0.4-20.1); HCO3 ABG 21.9 mmol/L (22-26); HGB O2 Sat 92.8 % (95-100); Ionized Calcium Level - ABG 1.2 mmol/L (1.1-1.4); Methemoglobin < 0.0 % (0.4-1.5); Oxygen Device VENT; PO2 ABG 79.9 mmHg (80.0-100.0); Potassium Level - ABG 4.7 mmol/L (3.5-5.0); Total Hemoglobin 8.2 g/dL (12-16)
[2020-09-18] MEDS: azithromycin 500 MG in sodium chloride 0.9% 250 ML 250 MG IV (16:10)
[2020-09-18] MEDS: propofol 1,000 MG/100 ML INJ 26.9 MG IV ×3 (16:37→23:05)
--- NOTE | 2020-09-18 16:51 | PC.RESP ---
Smoking Cessation information sent to patient.
--- NOTE | 2020-09-18 17:20 | PC.NURSE ---
Pt repositioned to right side. HR increased shortly after from 103 to 130's. Breath sounds audible in all lobes. No IV rate changes. Pt appears to be resting comfortably. BIS 59. Dr Summers notified prior to administering ordered IV Lorazepam. New one time order received. Scanned pt's wristband and med. Administered med per order. Computer battery . Scan not saved.
--- NOTE | 2020-09-18 19:06 | PC.NURSE ---
New Fentanyl bag given to vic Wiggins RN, for administration when current bag out.
[2020-09-18] MEDS: budesonide 0.5 mg/2 mL Neb INHALATION (20:12)
[2020-09-18 20:26] LABS: ABG PCO2 42.6 mmHg (35-45); ABG PH Result 7.27 (7.35-7.45); Base Excess ABG -6.8 mmol/L (-2.0-2.0); Blood Gas Sample Site Brachial, right; Blood Gas Sample Type Arterial; HCO3 ABG 19.6 mmol/L (22-26); Oxygen Device VENT
[2020-09-18] MEDS: dexmedetomidine 400 MCG in sodium chloride 0.9% (100 ml) 100 ML IV (23:50)
[2020-09-19] VITALS (99 sets, daily range): BP systolic 96–158; BP diastolic 53–109; PULSE 77–125; RESP 12–21; TEMP 37.1–38.1; O2SAT 91–100
--- NOTE | 2020-09-19 | PC.NURSE ---
BIS Monitoring 09/18/20 - 1899 45 - 2099 53 - 2200 41 - 230 46 09/19/20 - 58 Train of 4 09/18/20 - 12/21 - 12/21 - 12/21 on 4
[2020-09-19] MEDS: sodium chloride 0.9% 1,000 ML 75 ML IV ×2 (00:45→19:09)
[2020-09-19] MEDS: sodium chloride 0.9% 1,000 ML 250 ML IV (01:25)
--- NOTE | 2020-09-19 02:20 | PC.NURSE ---
Previous nurse explained pam was attmepting to remove medical devices as patient was started on paralytic and sedation medication
[2020-09-19 03:07] LABS: Basophils % 0.1 %; Hematocrit 24.4 % (37.0-47.0); Hemoglobin 6.7 g/dL (11.5-15.3); Lymphocytes # 0.3 10^3/uL (0.8-4.8); Lymphocytes % 2.5 %; Mean Corpuscular HGB Conc 27.5 g/dL (30.0-36.0); Mean Corpuscular Hemoglobin 20.5 pg (28.0-34.0); Mean Corpuscular Volume 74.6 fL (81-99); Mean Platelet Volume 9.4 fL (7.4-10.4); Monocytes # 0.3 10^3/uL (0.2-0.9); Monocytes % 2.8 %; Neutrophils # 9.53 10^3/uL (1.8-7.7); Neutrophils % 94.1 %; Nucleated Red Blood Cells % 0 %; Platelet Count 261 10^3/cmm (130-400); Red Blood Count 3.27 10^6/uL (4.1-5.3); Red Cell Distribution Width 15.4 % (12.1-15.1); White Blood Count 10.1 10^3/uL (4.0-10.0)
[2020-09-19 03:27] LABS: Alanine Aminotransferase 12 U/L (0-33); Albumin Level 3.5 g/dL (3.5-5.2); Alkaline Phosphatase 74 IU/L (35-105); Anion Gap 13.2 (5-19); Aspartate Amino Transferase 13 U/L (0-32); Blood Urea Nitrogen 15 mg/dL (6-20); Calcium 8.2 mg/dL (8.5-10.5); Carbon Dioxide 21 mmol/L (22-29); Chloride 107 mmol/L (98-107); Creatinine Clr Calc Pharmacy 126.3499; Globulin 2.6 g/dL (1.3-4.6); Glomerular Filtration Rate 94.2 mL/min (90-130); Glucose 165 mg/dL (65-115); Osmolality Calculated 289 mOsm/kg (285-295); Potassium 4.2 mmol/L (3.5-5.1); Sodium 137 mmol/L (136-145); Total Bilirubin 0.2 mg/dL (0.15-1.2); Total Protein 6.1 g/dL (6.6-8.7)
[2020-09-19] MEDS: ipratropium-albuterol 3 mL Neb INHALATION ×7 (03:59→23:14)
[2020-09-19] MEDS: acetaminophen 325 mg Tablet 650 MG PO (04:09)
--- NOTE | 2020-09-19 04:27 | PC.NURSE ---
Addendum entered by Brina Herman RN 09/19/20 04:49: Witnessed waste of below medications. Original Note: Wasted Medication: - Midazolam 50 ml - Vecuronium 42.5 ml - Propofol 43 ml Waste completed, verified with ore charger - LAYA Gonsalves
[2020-09-19 04:58] LABS: Hematocrit 24.3 % (37.0-47.0); Hemoglobin 6.7 g/dL (11.5-15.3)
[2020-09-19 05:02] LABS: ABG PCO2 32.2 mmHg (35-45); ABG PH Result 7.41 (7.35-7.45); Arterial Blood Gas Hematocrit 21.6 % (37-47); Base Excess ABG -3.7 mmol/L (-2.0-2.0); Blood Gas Allen Test Pos; Blood Gas Sample Site Radial, right; Blood Gas Sample Type Arterial; HCO3 ABG 20.5 mmol/L (22-26); Oxygen Device VENT; PO2 ABG 59.2 mmHg (80.0-100.0)
[2020-09-19] MEDS: dexmedetomidine 400 MCG in sodium chloride 0.9% (100 ml) 100 ML 15.6 MCG IV (06:40)
--- NOTE | 2020-09-19 07:00 | XRR_ITS ---
PROCEDURE INFORMATION: Exam: XR Chest, 1 View Exam date and time: 09/19/2020 5:46 AM Age: 35 years old Clinical indication: Condition or disease; Lung condition and disease; Respiratory failure; Status not specified; Additional info: Follow up resp failure TECHNIQUE: Imaging protocol: XR of the chest Views: 1 view. COMPARISON: CR XR chest 1V portable [id number] 09/18/2020 7:23 AM FINDINGS: Tubes, catheters and devices: An endotracheal tube is present with its tip about 5 cm above the jaciel. A nasogastric tube extends into the stomach. Lungs: Unremarkable. No consolidation. Pleural space: Unremarkable. No pleural effusion. No pneumothorax. Heart/Mediastinum: Unremarkable. No cardiomegaly. Bones/joints: Unremarkable. XR/XR chest 1V portable [id number] IMPRESSION: 1. Satisfactory endotracheal tube and nasogastric tube position. 2. No significant cardiopulmonary abnormality.
--- NOTE | 2020-09-19 07:32 | PM.PN ---
Subjective Subjective: Interval history: Shavon is sedated when I enter the room but with stimulation she can open her eyes and focus some. Blood is currently being prepared to infuse secondary to significantly low hemoglobin noted on repeat laboratory this morning. Medications: Reviewed: Yes Vitals/I&O/Wt Last Vital Signs Temp 99.8 F H 09/19/20 06:00 Pulse 91 09/19/20 06:00 Resp 14 09/19/20 06:10 BP 142/89 09/19/20 06:00 Pulse Ox 100 09/19/20 06:00 09/18/20 09/19/20 09/19/20 22:59 06:59 14:59 Intake Total 680.938 / 856.971 796.680 / 1653.651 Output Total 555 / 1175 250 / 1425 Balance 125.938 / -318.029 546.680 / 228.651 Weight last 48 hrs Weight 98.3 kg Weight 99.79 kg Physical Exam Narrative: EXAM NARRATIVE: General exam is an intubated and sedated female, in no apparent distress Cardiovascular regular rate and rhythm Lungs better air movement is noted bilaterally. Inspiratory wheeze heard on the left. Abdomen is soft with positive bowel sounds. No obvious organomegaly Extremities no cyanosis clubbing or edema, cap refill brisk Neurologic: No focal deficits noted. Opens eyes to stimuli. Urinary Catheter Management^: Estrada: Cath Placed During This Visit: no Reason for Continuing Indwelling Catheter: Accurate Measurement of Urinary Output in Critically Ill Patients Data : 09/19/20 04:54 09/19/20 02:56 A&P Assessment and plan (1) Asthma with exacerbation: Sedation currently fentanyl, Ativan, Precedex. She appears comfortable. Paralytic drip was discontinued through the night Appreciate pulmonary critical care consultation She received epinephrine, magnesium, appropriate beta agonist in the emergency department for her severe asthma exacerbation Continue DuoNeb every 4 hours Reduce Solu-Medrol to 60 mg IV every 8 hours Continue inhaled steroid Currently on pressure control ventilation with FiO2 of 60%, pressure support of 12, rate of 12, peak inspiratory pressure. She appears to be tolerating this well. Status: Acute Qualifiers: Asthma persistence: unspecified Asthma severity: severe Qualified Code(s): J45.901 - Unspecified asthma with (acute) exacerbation (2) Acute hypoxemic respiratory failure: See above. Significant respiratory acidosis present on admission Temperature 100.5 last night. Blood cultures drawn Add Zosyn Check MRSA PCR Await chest x-ray read from today but to my evaluation no infiltrate, hyperexpansion Status: Acute (3) Microcytic anemia: Consistent with iron deficiency anemia No obvious active bleeding has been noted although hemoglobin is 6.7 this morning. Bilirubin and AST are normal so hemolysis is not suspected. Discontinue Pepcid, changed to Protonix IV Discontinue Lovenox, continue SCDs Transfusion of 1 unit packed red blood cells in progress. Check hemoglobin 30 minutes to 1 hour following transfusion Findings consistent with acute on chronic anemia, question blood loss Status: Acute (4) Tobacco dependency: Encourage cessation Status: Acute Additional A&P Information Significant alcohol use. Continue to monitor for withdrawal. Thiamine. Currently on an Ativan drip, Precedex History of partial thyroidectomy. TSH normal History of hypertension. Continue to monitor Full code SCDs for DVT prophylaxis Protonix now for GI prophylaxis Attestations Medical Necessity Statement*: Needs continued hospitalization, secondary to respiratory failure requiring mechanical ventilation Critical Care Time: 34 minutes spent in critical care time at bedside reviewing ventilator settings, laboratory, transfusion and is patient with respiratory failure, severe asthma exacerbation, severe anemia with high risk of decompensation. 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
[2020-09-19] MEDS: budesonide 0.5 mg/2 mL Neb INHALATION ×2 (08:20→20:09)
[2020-09-19] MEDS: piperacillin-tazobactam 3.375 GM in sodium chloride 0.9% (plus) 50 ML IV ×2 (08:33→15:58)
[2020-09-19] MEDS: thiamine 100 mg Tablet PO (08:33)
[2020-09-19] MEDS: folic acid 1 mg Tablet PO (08:33)
[2020-09-19] MEDS: multivitamin therapeutic Tablet 1 TAB PO (08:33)
[2020-09-19] MEDS: pantoprazole 40 mg SDV IVP ×2 (08:34→19:44)
[2020-09-19] MEDS: sodium chloride 0.9% 250 ML 30 ML IV (08:34)
--- NOTE | 2020-09-19 09:38 | PC.CHAP ---
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 visit [] Patient/Family/Request visit [] Outpatient visit [] Follow-up visit [] Physician referral [] Code/Alert [] Routine visit [] Staff referral [] Actively dying [] Patient sleeping [] Family support [] [] Out of room [] Palliative care [] [] Receiving care in room [] Pre-surgical visit [] Trauma [] Long length of stay [] ICU visit [] Other: Relational/Emotional Strength [] Patient feels connected with others/family/visitors/staff [] Distress [] Loneliness/isolation [] Abandonment Spirituality of Patient [] Person of Johana [] Attends Shinto of their Johana [] Believes in Prayer [] Reads Bible or Hinduism materials [] There are Spiritual issues to be addressed Customer Success Director Interventions [x] Prayer [] Active listening [] Non-anxious presence [] Spiritual/emotional support [] Crisis/trauma care [] Spiritual counseling [] Bereavement support [] Provided bereavement packet [] Provided Bible/devotional materials [] Provided toy/stuffed animal, coloring book to patient or family member [] Provided Communion [] Anointing/[place] [] Salvation [x] Completed spiritual assessment [] Other: Impact on Illness or Injury [] Angry [] Fearful [] Anxious [] Often cries [] Exhaustion [] Unable to work [] Unable to attend druze [] Unable to walk/stand [] Unable to read [] Unable to drive [] Unable to eat/drink [] Unable to sleep [] Unable to be with family [] Patient intubated [] Other: Summary Time spent with patient
[2020-09-19 13:11] LABS: Hematocrit 28.5 % (37.0-47.0); Hemoglobin 7.9 g/dL (11.5-15.3)
[2020-09-19] MEDS: chlordiazePOXIDE 25 mg Capsule PO ×2 (13:40→19:43)
[2020-09-19] MEDS: azithromycin 500 MG in sodium chloride 0.9% 250 ML 250 MG IV (15:58)
[2020-09-19] MEDS: propofol 1,000 MG/100 ML INJ 5.9 MG IV (17:27)
--- NOTE | 2020-09-19 17:27 | PC.NURSE ---
Fentanyl and ativan drips with 0 waste, witnessed by Leann King RN
[2020-09-19 18:30] LABS: Hematocrit 28.1 % (37.0-47.0); Hemoglobin 7.9 g/dL (11.5-15.3)
[2020-09-19] MEDS: LORazepam 2 mg/mL INJ 1 mL IVP ×2 (20:43→23:53)
[2020-09-19] MEDS: dexmedetomidine 400 MCG in sodium chloride 0.9% (100 ml) 100 ML 25.9 MCG IV (21:15)
[2020-09-20] VITALS (43 sets, daily range): BP systolic 128–194; BP diastolic 79–139; PULSE 57–120; RESP 14–20; TEMP 37.1–37.2; O2SAT 91–100; BMI 39.3
[2020-09-20] MEDS: piperacillin-tazobactam 3.375 GM in sodium chloride 0.9% (plus) 50 ML IV ×4 (00:50→23:44)
[2020-09-20] MEDS: chlordiazePOXIDE 25 mg Capsule PO ×2 (00:50→08:13)
[2020-09-20] MEDS: dexmedetomidine 400 MCG in sodium chloride 0.9% (100 ml) 100 ML 25.9 MCG IV ×2 (01:10→04:08)
[2020-09-20] MEDS: LORazepam 2 mg/mL INJ 1 mL IVP ×6 (02:39→23:01)
[2020-09-20] MEDS: ipratropium-albuterol 3 mL Neb INHALATION ×6 (03:13→23:45)
[2020-09-20 03:59] LABS: Basophils % 0.1 %; Hematocrit 28.3 % (37.0-47.0); Hemoglobin 7.8 g/dL (11.5-15.3); Lymphocytes # 0.4 10^3/uL (0.8-4.8); Lymphocytes % 2.6 %; Mean Corpuscular HGB Conc 27.6 g/dL (30.0-36.0); Mean Corpuscular Hemoglobin 21.5 pg (28.0-34.0); Mean Platelet Volume 9.6 fL (7.4-10.4); Monocytes # 0.5 10^3/uL (0.2-0.9); Monocytes % 3.4 %; Neutrophils # 12.42 10^3/uL (1.8-7.7); Neutrophils % 92.3 %; Nucleated Red Blood Cells % 0 %; Platelet Count 255 10^3/cmm (130-400); Red Blood Count 3.63 10^6/uL (4.1-5.3); Red Cell Distribution Width 15.8 % (12.1-15.1); White Blood Count 13.5 10^3/uL (4.0-10.0)
[2020-09-20 04:24] LABS: Alanine Aminotransferase 14 U/L (0-33); Albumin Level 3.7 g/dL (3.5-5.2); Alkaline Phosphatase 83 IU/L (35-105); Anion Gap 14.4 (5-19); Aspartate Amino Transferase 12 U/L (0-32); Blood Urea Nitrogen 15 mg/dL (6-20); Calcium 8.4 mg/dL (8.5-10.5); Carbon Dioxide 23 mmol/L (22-29); Chloride 107 mmol/L (98-107); Globulin 2.6 g/dL (1.3-4.6); Glomerular Filtration Rate 112.5 mL/min (90-130); Glucose 183 mg/dL (65-115); Osmolality Calculated 296 mOsm/kg (285-295); Potassium 4.4 mmol/L (3.5-5.1); Sodium 140 mmol/L (136-145); Total Bilirubin 0.2 mg/dL (0.15-1.2); Total Protein 6.3 g/dL (6.6-8.7)
[2020-09-20 05:40] LABS: ABG PCO2 38.8 mmHg (35-45); ABG PH Result 7.39 (7.35-7.45); Arterial Blood Gas Hematocrit 26.1 % (37-47); Base Excess ABG -1.6 mmol/L (-2.0-2.0); Blood Gas Allen Test Pos; Blood Gas Sample Site Radial, right; Blood Gas Sample Type Arterial; HCO3 ABG 23.2 mmol/L (22-26); Oxygen Device VENT; PO2 ABG 97.1 mmHg (80.0-100.0)
[2020-09-20 06:25] LABS: Coronavirus Lab Test PTC Negative
--- NOTE | 2020-09-20 07:00 | XR_ITS ---
WS: [id number] Portable AP semiupright chest, 09/20/2020 Clinical Data: resp failure Comparison: Portable chest, 09/19/2020 Findings: No nodules, masses or effusions are seen. The heart is normal. The pulmonary vascularity is not increased. No pneumonia or pneumothorax is seen. The endotracheal tube is above the jaciel and t he nasogastric tube appears to end in the stomach. There are monitor leads on the chest wall. XR/XR chest 1V portable [id number] Impression: Satisfactory position of endotracheal tube and nasogastric tube.
[2020-09-20] MEDS: budesonide 0.5 mg/2 mL Neb INHALATION ×2 (07:57→20:47)
[2020-09-20] MEDS: multivitamin therapeutic Tablet 1 TAB PO (08:13)
[2020-09-20] MEDS: thiamine 100 mg Tablet PO (08:13)
[2020-09-20] MEDS: folic acid 1 mg Tablet PO (08:13)
[2020-09-20] MEDS: pantoprazole 40 mg SDV IVP ×2 (08:13→19:36)
--- NOTE | 2020-09-20 08:38 | PM.PN ---
Subjective Subjective: Interval history: The patient is doing well this morning. She is sedated with fentanyl and Precedex. Easily arousable, following commands. Vital capacity more than 1.2 L. The patient had stayed on pressure support ventilation with good blood gas this morning. Medications: Reviewed: Yes Vitals/I&O/Wt Last Vital Signs Temp 98.8 F 09/20/20 05:46 Pulse 73 09/20/20 08:12 Resp 19 H 09/20/20 08:08 BP 159/111 09/20/20 05:00 Pulse Ox 100 09/20/20 08:04 09/19/20 09/20/20 09/20/20 22:59 06:59 14:59 Intake Total 333.934 / 1833.934 362.926 / 2196.860 71.5 / 71.5 Output Total 525 / 525 900 / 1425 Balance -191.066 / 1308.934 -537.074 / 771.860 71.5 / 71.5 Weight last 48 hrs Weight 229 lb 4.492 oz Weight 216 lb 11.43 oz Physical Exam Narrative: EXAM NARRATIVE: General: Patient is intubated and sedated but easily arousable. Neck: No JVD, no cervical or supraclavicular lymphadenopathy. Respiratory: Auscultation: Reduced breath sound bilaterally, no crackles, occasional wheezing and rhonchi Cardiovascular: Regular rate and rhythm, S1-S2 present, distant heart sound, no murmur, no peripheral edema. Abdomen: Soft, nontender, mildly distended from obesity, positive bowel sound Musculoskeletal: No obvious joint deformity Skin: No rash Neuro: The patient is intubated and sedated, follows commands moving all extremities Urinary Catheter Management^: Estrada: Cath Placed During This Visit: no Reason for Continuing Indwelling Catheter: Accurate Measurement of Urinary Output in Critically Ill Patients Data : 09/20/20 03:05 09/20/20 03:05 Micro: Microbiology 09/19/20 07:18 Blood Culture - Preliminary Blood NEGATIVE TO DATE 09/19/20 12:00 MRSA Culture - Final Nose 09/19/20 12:57 Blood Culture - Preliminary Blood SPECIMEN COLLECTED Attestation for Other Data: I personally reviewed and interpreted the following: Other data: I have reviewed the patient's laboratory, microbiologic and radiologic data. Chest x-ray did not show any infiltrate today. There is mild leukocytosis likely secondary to high-dose steroid. All microbiologic work-up has been negative so far. A&P Assessment and plan (1) Acute hypoxemic respiratory failure: This is a 35-year-old lady with status asthmaticus who developed hypoxic and hypercapnic respiratory failure requiring mechanical ventilation. The patient was paralyzed initially. She was taken off of paralytics yesterday and had done well overnight on pressure support ventilation. Her blood gas this morning looks well. The patient is sedated however she is following commands and has good vital capacity. The patient is ready for extubation. The patient can be extubated on Precedex for the time being. There is no evidence of alcohol withdrawal at this point. The patient can be switched to oral steroid with tapering dose when she is ready. If she decompensates for any reason, noninvasive positive pressure ventilation will help her post extubation. I will be happy to follow-up with her in the office. 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
[2020-09-20] MEDS: dexmedetomidine 400 MCG in sodium chloride 0.9% (100 ml) 100 ML 18.2 MCG IV ×2 (08:39→19:43)
--- NOTE | 2020-09-20 08:52 | PC.NURSE ---
Patient extubated by respiratory therapy at [address] Goode. Tolerated well. Will continue to monitor closely.
[2020-09-20] MEDS: lanolin oint 7 gm 1 APPLIC TOPICAL (09:16)
[2020-09-20] MEDS: hyDRALAzine 10 mg Tablet PO (10:16)
--- NOTE | 2020-09-20 10:18 | P.PN_ITS ---
Subjective Subjective: Interval history: Shavon is a 35 yo female presenting with status asthmaticus 2 days ago requiring mechanical ventilation. Today she was extubated. She was very agitated and crying upon awakening, and is still wheezing and coughing. Medications: Reviewed: Yes Vitals/I&O/Wt Last Vital Signs Temp 98.8 F 09/20/20 08:00 Pulse 76 09/20/20 09:00 Resp 19 H 09/20/20 08:08 BP 157/103 09/20/20 09:00 Pulse Ox 96 09/20/20 09:00 09/19/20 09/20/20 09/20/20 22:59 06:59 14:59 Intake Total 333.934 / 1833.934 362.926 / 2196.860 113.663 / 113.663 Output Total 525 / 525 900 / 1425 Balance -191.066 / 1308.934 -537.074 / 771.860 113.663 / 113.663 Weight last 48 hrs Weight 104 kg Weight 98.3 kg Physical Exam Const: ORIENTATION/CONSCIOUSNESS: Yes oriented to person, Yes oriented to place and Yes oriented to time OTHER: Patient is sleepy but arousable. Neck/C-Spine: COMMON NORMALS: no JVD Resp: EFFORT & INSPECTION: Yes tachypneic and Yes respiratory distress AUSCULTATION: wheezes OTHER: She is having to take a deep breath while speaking. Cardio: COMMON NORMALS: no JVD and Peripheral pulses 2+ throughout PERIPHERAL PULSES: Peripheral pulses 2+ throughout Neuro: SENSORIUM/ORIENTATION: Yes oriented to person, Yes oriented to place and Yes oriented to time Urinary Catheter Management^: Estrada: Cath Placed During This Visit: no Reason for Continuing Indwelling Catheter: Accurate Measurement of Urinary Output in Critically Ill Patients Data : 09/20/20 03:05 09/20/20 03:05 Micro: Microbiology 09/19/20 06:20 Urine Culture - Preliminary Urine Catheterized 09/19/20 07:18 Blood Culture - Preliminary Blood NEGATIVE TO DATE 09/19/20 12:00 MRSA Culture - Final Nose 09/19/20 12:57 Blood Culture - Preliminary Blood SPECIMEN COLLECTED A&P Assessment and plan (1) Asthma with exacerbation: Wean patient off Precedex. Appreciate continued pulmonary critical care consultation She received epinephrine, magnesium, appropriate beta agonist in the emergency department for her severe asthma exacerbation. Continue DuoNeb every 4 hours Discontinue Solu-Medrol. Change to prednisone 40 mg daily Continue inhaled steroid Status: Acute Qualifiers: Asthma persistence: unspecified Asthma severity: severe Qualified Code(s): J45.901 - Unspecified asthma with (acute) exacerbation (2) Acute hypoxemic respiratory failure: See above. Significant respiratory acidosis present on admission Temperature 98.8 this morning. Blood cultures negative Placed on Zosyn, azithromycin for concerns of fever, possible aspiration Negative MRSA PCR Chest xray is unremarkable. Status: Acute (3) Microcytic anemia: Consistent with iron deficiency anemia No obvious active bleeding has been noted. Hemoglobin is 7.8 this morning. Bilirubin and AST are normal so hemolysis is not suspected. Continue Protonix No anticoagulation secondary to severe anemia Was transfused 1 unit of packed red blood cells on September 19 Findings consistent with acute on chronic anemia Continue to monitor hemoglobin Status: Acute (4) Tobacco dependency: Encourage cessation Status: Acute Additional A&P Information Significant alcohol use. Continue to monitor for withdrawal. Continue thiamine . Ativan as needed. History of partial thyroidectomy. TSH normal History of hypertension. Continue to monitor Full code SCDs for DVT prophylaxis Protonix now for GI prophylaxis Attestations Medical Necessity Statement*: Needs continued hospitalization for close monitoring secondary to respiratory failure requiring mechanical ventilation, now extubated in this patient with severe episode of asthma exacerbation. 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
[2020-09-20] MEDS: predniSONE 20 mg Tablet 40 MG PO (11:31)
--- NOTE | 2020-09-20 12:54 | PC.NURSE ---
Manual breast pump given. Manual breast pump given at this time. Pt assisted with position of pump. Questions answered. Pt instructed to notify ICU staff if they had any questions pertaining to breast pumping and they could notify the OB staff.
[2020-09-20] MEDS: azithromycin 500 MG in sodium chloride 0.9% 250 ML 250 MG IV (15:47)
--- NOTE | 2020-09-20 16:58 | PC.NURSE ---
At approximately 1500 patient became increasingly confused and agitated. Multiple attempts to reorient made, patient continued to be anxious, and discontinued both IVs. Patient also hallucinating a phone ringing and people walking through her room. HR increased to 130-140s and tremor in both hands noted. Dr. Summers on unit and notified. PRN ativan given and precedex drip reinitiated after IV access obtained.
--- NOTE | 2020-09-20 17:15 | PC.NURSE ---
Ativan order change Telephone order from Dr. Summers, change Ativan order to 1-2 mg Ativan IVP Q4H. Titrate off of precedex.
--- NOTE | 2020-09-20 17:31 | PC.NURSE ---
40 mL fentanyl wasted with Darlene Talbot RN
[2020-09-20] MEDS: hyDRALAzine 20 mg/mL INJ 1 mL 10 MG IVP (23:46)
[2020-09-21] VITALS (21 sets, daily range): BP systolic 121–169; BP diastolic 76–102; PULSE 53–114; RESP 16–25; TEMP 35.9–37.2; O2SAT 90–97
[2020-09-21] MEDS: dexmedetomidine 400 MCG in sodium chloride 0.9% (100 ml) 100 ML 18.2 MCG IV ×2 (01:37→06:00)
[2020-09-21] MEDS: ipratropium-albuterol 3 mL Neb INHALATION ×5 (03:30→20:55)
[2020-09-21 03:54] LABS: Basophils % 0.1 %; Hemoglobin 8.1 g/dL (11.5-15.3); Lymphocytes % 11.2 %; Mean Corpuscular HGB Conc 28.9 g/dL (30.0-36.0); Mean Corpuscular Hemoglobin 21.1 pg (28.0-34.0); Mean Corpuscular Volume 72.9 fL (81-99); Mean Platelet Volume 8.8 fL (7.4-10.4); Monocytes # 0.6 10^3/uL (0.2-0.9); Monocytes % 6.2 %; Neutrophils # 7.31 10^3/uL (1.8-7.7); Neutrophils % 81.7 %; Nucleated Red Blood Cells % 0.2 %; Platelet Count 235 10^3/cmm (130-400); Red Blood Count 3.84 10^6/uL (4.1-5.3); Red Cell Distribution Width 15.9 % (12.1-15.1); White Blood Count 8.9 10^3/uL (4.0-10.0)
[2020-09-21 04:19] LABS: Alanine Aminotransferase 20 U/L (0-33); Albumin Level 3.7 g/dL (3.5-5.2); Alkaline Phosphatase 68 IU/L (35-105); Anion Gap 14.2 (5-19); Aspartate Amino Transferase 14 U/L (0-32); Blood Urea Nitrogen 12 mg/dL (6-20); Calcium 8.5 mg/dL (8.5-10.5); Carbon Dioxide 27 mmol/L (22-29); Chloride 102 mmol/L (98-107); Globulin 2.6 g/dL (1.3-4.6); Glomerular Filtration Rate 138.8 mL/min (90-130); Glucose 118 mg/dL (65-115); Osmolality Calculated 291 mOsm/kg (285-295); Potassium 3.2 mmol/L (3.5-5.1); Sodium 140 mmol/L (136-145); Total Bilirubin 0.2 mg/dL (0.15-1.2); Total Protein 6.3 g/dL (6.6-8.7)
[2020-09-21] MEDS: budesonide 0.5 mg/2 mL Neb INHALATION (07:58)
[2020-09-21] MEDS: thiamine 100 mg Tablet PO (08:12)
[2020-09-21] MEDS: pantoprazole 40 mg SDV IVP ×2 (08:12→20:51)
[2020-09-21] MEDS: potassium chloride ER 20 mEq Tablet 40 MEQ PO (08:12)
[2020-09-21] MEDS: folic acid 1 mg Tablet PO (08:13)
[2020-09-21] MEDS: multivitamin therapeutic Tablet 1 TAB PO (08:13)
[2020-09-21] MEDS: predniSONE 20 mg Tablet 40 MG PO (08:13)
[2020-09-21] MEDS: piperacillin-tazobactam 3.375 GM in sodium chloride 0.9% (plus) 50 ML IV ×2 (08:13→16:36)
--- NOTE | 2020-09-21 10:22 | PM.PN ---
Subjective Subjective: Interval history: Shavon reports she wants to get out of the hospital soon as possible. She reports her breathing is better. Less coughing. Nursing reports that she is more alert. Medications: Reviewed: Yes Vitals/I&O/Wt Last Vital Signs Temp 98.6 F 09/21/20 04:00 Pulse 80 09/21/20 08:01 Resp 19 H 09/21/20 08:01 BP 136/80 09/21/20 06:00 Pulse Ox 94 09/21/20 08:01 09/20/20 09/21/20 09/21/20 22:59 06:59 14:59 Intake Total 116.43 / 1557.663 233.777 / 1791.440 36.703 / 36.703 Output Total 1800 / 4525 700 / 5225 Balance -1683.57 / -2967.337 -466.223 / -3433.560 36.703 / 36.703 Weight last 48 hrs Weight 103.827 kg Weight 104 kg Physical Exam Narrative: EXAM NARRATIVE: General exam extubated, conversive, emotional but no apparent distress Cardiovascular regular rate and rhythm Lungs better air movement is noted bilaterally. A few faint expiratory wheezes heard on the left Abdomen is soft with positive bowel sounds. No obvious organomegaly Extremities no cyanosis clubbing or edema, cap refill brisk Urinary Catheter Management^: Estrada: Cath Placed During This Visit: no Reason for Continuing Indwelling Catheter: Accurate Measurement of Urinary Output in Critically Ill Patients Data : 09/21/20 03:22 09/21/20 03:22 Micro: Microbiology 09/19/20 07:18 Blood Culture - Preliminary Blood Coagulase negativ staphylococc 09/19/20 06:20 Urine Culture - Final Urine Catheterized 09/19/20 06:10 Sputum Culture - Preliminary Sputum - Endotracheal Tube Aspirate 09/19/20 12:57 Blood Culture - Preliminary Blood NEGATIVE TO DATE A&P Assessment and plan (1) Asthma with exacerbation: Precedex discontinued this morning. Appreciate continued pulmonary critical care consultation She received epinephrine, magnesium, appropriate beta agonist in the emergency department for her severe asthma exacerbation. Continue DuoNeb every 4 hours Prednisone 40 mg daily She is on Brio Ellipta at home so we will change to Advair 500/50 inhalation twice daily and discontinue Pulmicort Status: Acute Qualifiers: Asthma persistence: unspecified Asthma severity: severe Qualified Code(s): J45.901 - Unspecified asthma with (acute) exacerbation (2) Acute hypoxemic respiratory failure: See above. Significant respiratory acidosis present on admission Blood cultures negative Placed on Zosyn, azithromycin for concerns of fever, possible aspiration Negative MRSA PCR Appears to be resolving. Try to wean off oxygen. Status: Acute (3) Microcytic anemia: Consistent with iron deficiency anemia No obvious active bleeding has been noted. Stabilized. Bilirubin and AST are normal so hemolysis is not suspected. Continue Protonix No anticoagulation secondary to severe anemia Was transfused 1 unit of packed red blood cells on September 19 Findings consistent with acute on chronic anemia Continue to monitor hemoglobin Awaiting stool Hemoccult Status: Acute (4) Tobacco dependency: Encourage cessation Status: Acute Additional A&P Information Significant alcohol use. Continue thiamine. Ativan as needed. Question of withdrawal but if was present appears to be resolving. History of partial thyroidectomy. TSH normal History of hypertension. Continue to monitor. Hydralazine prn Full code SCDs for DVT prophylaxis Protonix now for GI prophylaxis Probable transfer out of ICU today Attestations Medical Necessity Statement*: Needs continued hospitalization secondary to severe asthma exacerbation for further pulmonary toilet and adjustment of medication. 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
[2020-09-21] MEDS: sennosides 8.6 mg Tablet 17.2 MG PO ×2 (11:42→21:42)
[2020-09-21] MEDS: loratadine 10 mg Tablet PO (11:42)
--- NOTE | 2020-09-21 16:26 | PC.NURSE ---
pt arrived on medsurg unit at 1600
[2020-09-21] MEDS: azithromycin 500 MG in sodium chloride 0.9% 250 ML 250 MG IV (16:47)
[2020-09-21] MEDS: montelukast sodium 10 mg Tablet PO (17:39)
[2020-09-21] MEDS: sennosides-docusate Tablet 2 TAB PO (17:39)
[2020-09-22] VITALS (18 sets, daily range): BP systolic 115–161; BP diastolic 72–91; PULSE 70–105; RESP 16–22; TEMP 36.7–37.1; O2SAT 90–98
[2020-09-22] MEDS: ipratropium-albuterol 3 mL Neb INHALATION ×7 (00:45→23:40)
[2020-09-22] MEDS: piperacillin-tazobactam 3.375 GM in sodium chloride 0.9% (plus) 50 ML IV ×3 (00:55→17:55)
[2020-09-22 05:40] LABS: Basophils % 0.1 %; Eosinophils # 0.1 10^3/uL (0.0-0.8); Eosinophils % 1.3 %; Lymphocytes # 1.6 10^3/uL (0.8-4.8); Lymphocytes % 20.5 %; Mean Corpuscular Hemoglobin 21.5 pg (28.0-34.0); Mean Platelet Volume 9.4 fL (7.4-10.4); Monocytes # 0.5 10^3/uL (0.2-0.9); Monocytes % 6.1 %; Neutrophils # 5.49 10^3/uL (1.8-7.7); Neutrophils % 71.1 %; Nucleated Red Blood Cells % 0.3 %; Platelet Count 270 10^3/cmm (130-400); Red Blood Count 4.19 10^6/uL (4.1-5.3); Red Cell Distribution Width 16.5 % (12.1-15.1); White Blood Count 7.7 10^3/uL (4.0-10.0)
[2020-09-22 05:57] LABS: Anion Gap 14.4 (5-19); Blood Urea Nitrogen 17 mg/dL (6-20); Carbon Dioxide 27 mmol/L (22-29); Chloride 103 mmol/L (98-107); Glomerular Filtration Rate 94.2 mL/min (90-130); Glucose 96 mg/dL (65-115); Osmolality Calculated 293 mOsm/kg (285-295); Potassium 3.4 mmol/L (3.5-5.1); Sodium 141 mmol/L (136-145)
[2020-09-22] MEDS: potassium chloride ER 20 mEq Tablet 40 MEQ PO (06:57)
[2020-09-22] MEDS: folic acid 1 mg Tablet PO (09:23)
[2020-09-22] MEDS: predniSONE 20 mg Tablet 40 MG PO (09:23)
[2020-09-22] MEDS: multivitamin therapeutic Tablet 1 TAB PO (09:23)
[2020-09-22] MEDS: pantoprazole 40 mg SDV IVP ×2 (09:23→20:58)
[2020-09-22] MEDS: sennosides-docusate Tablet 2 TAB PO ×2 (09:23→17:54)
[2020-09-22] MEDS: loratadine 10 mg Tablet PO (09:24)
[2020-09-22] MEDS: thiamine 100 mg Tablet PO (09:24)
--- NOTE | 2020-09-22 14:18 | P.PN_ITS ---
Subjective Subjective: Interval history: Shavon reports she is breathing a little bit better. She is scared about going home secondary to the severity of her asthma exacerbation. Medications: Reviewed: Yes Vitals/I&O/Wt Last Vital Signs Temp 98.7 F 09/22/20 11:30 Pulse 94 09/22/20 11:37 Resp 16 09/22/20 11:30 BP 131/75 09/22/20 11:30 Pulse Ox 96 09/22/20 11:30 09/21/20 09/22/20 09/22/20 22:59 06:59 14:59 Intake Total 290 / 1636.703 650 / 2286.703 240 / 240 Output Total 200 / 600 400 / 1000 Balance 90 / 1036.703 250 / 1286.703 240 / 240 Weight last 48 hrs Weight 98.656 kg Weight 103.827 kg Physical Exam Narrative: EXAM NARRATIVE: General exam no apparent distress Cardiovascular regular rate and rhythm Lungs a few faint expiratory wheezes are noted bilaterally Abdomen is soft with positive bowel sounds. No obvious organomegaly Extremities no cyanosis clubbing or edema, cap refill brisk Urinary Catheter Management^: Estrada: Cath Placed During This Visit: yes, but has since been removed by the nurse Reason for Continuing Indwelling Catheter: Accurate Measurement of Urinary Output in Critically Ill Patients Date Urinary Catheter Removed: 09/21/20 Time Urinary Catheter Discontinued: 08:30 Data : 09/22/20 04:27 09/22/20 04:27 Micro: Microbiology 09/19/20 06:10 Sputum Culture - Final Sputum - Endotracheal Tube Aspirate Staphylococcus aureus 09/19/20 07:18 Blood Culture - Preliminary Blood Coagulase negativ staphylococc 09/19/20 06:20 Urine Culture - Final Urine Catheterized A&P Assessment and plan (1) Asthma with exacerbation: Continues to improve Appreciate continued pulmonary critical care consultation She received epinephrine, magnesium, appropriate beta agonist in the emergency department for her severe asthma exacerbation. Continue DuoNeb every 4 hours Prednisone 40 mg daily currently Continue Advair Status: Acute Qualifiers: Asthma persistence: unspecified Asthma severity: severe Qualified Code(s): J45.901 - Unspecified asthma with (acute) exacerbation (2) Acute hypoxemic respiratory failure: See above. Significant respiratory acidosis present on admission Blood cultures 1 bottle coag negative staph consistent with contamination. Placed on Zosyn, azithromycin for concerns of fever, possible aspiration Negative MRSA PCR Sputum culture demonstrates staph aureus. Plan discharge on Augmentin Status: Acute (3) Microcytic anemia: Consistent with iron deficiency anemia No obvious active bleeding has been noted. Stabilized. Bilirubin and AST are normal so hemolysis is not suspected. Continue Protonix No anticoagulation secondary to severe anemia Was transfused 1 unit of packed red blood cells on September 19 Findings consistent with acute on chronic anemia Continue to monitor hemoglobin Awaiting stool Hemoccult Consider outpatient follow-up Status: Acute (4) Tobacco dependency: Encourage cessation Status: Acute Additional A&P Information Significant alcohol use. Continue thiamine. Ativan as needed. Question of withdrawal but if was present appears to be resolving. History of partial thyroidectomy. TSH normal History of hypertension. Continue to monitor. Hydralazine prn Full code SCDs for DVT prophylaxis Protonix now for GI prophylaxis Attestations Medical Necessity Statement*: Needs continued hospitalization, for pulmonary toilet secondary to asthma exacerbation life-threatening. Possible [place] to [place]. 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
[2020-09-22] MEDS: montelukast sodium 10 mg Tablet PO (17:55)
[2020-09-22] MEDS: azithromycin 250 mg Tablet 500 MG PO (17:55)
[2020-09-22] MEDS: sennosides 8.6 mg Tablet 17.2 MG PO (21:10)
--- NOTE | 2020-09-22 21:22 | PC.NURSE ---
pt was visibly upset at the time about not being able to breast feed her 17 month old son due to the medication that she is currently taking, and that she is also not able to produce as much breast milk. She talked about it for 10 minutes and claimed that it helped emotionally to be able to talk about it.
[2020-09-23] VITALS (10 sets, daily range): BP systolic 116–136; BP diastolic 70–91; PULSE 79–96; RESP 17–19; TEMP 36.3–37.1; O2SAT 93–98
[2020-09-23] MEDS: piperacillin-tazobactam 3.375 GM in sodium chloride 0.9% (plus) 50 ML IV ×2 (00:43→08:33)
[2020-09-23] MEDS: ipratropium-albuterol 3 mL Neb INHALATION ×3 (03:45→11:32)
[2020-09-23] MEDS: pantoprazole 40 mg SDV IVP (08:34)
[2020-09-23] MEDS: potassium chloride ER 20 mEq Tablet 40 MEQ PO (08:34)
[2020-09-23] MEDS: predniSONE 20 mg Tablet 40 MG PO (08:35)
[2020-09-23] MEDS: multivitamin therapeutic Tablet 1 TAB PO (08:35)
[2020-09-23] MEDS: folic acid 1 mg Tablet PO (08:36)
[2020-09-23] MEDS: sennosides-docusate Tablet 2 TAB PO (08:36)
[2020-09-23] MEDS: loratadine 10 mg Tablet PO (08:36)
[2020-09-23] MEDS: thiamine 100 mg Tablet PO (08:36)
--- NOTE | 2020-09-23 10:50 | P.DS_ITS ---
Discharge Providers Date of Admission: 09/18/20 10:45 Date of Discharge: September 23, 2020 Attending Provider at Admission: Dougie Summers MD Attending Provider at Discharge: Darryl Gonzalez MD Diagnoses at Discharge Discharge Diagnosis (1) Asthma with exacerbation: Status: Acute Qualifiers: Asthma persistence: unspecified Asthma severity: severe Qualified Code(s): J45.901 - Unspecified asthma with (acute) exacerbation (2) Acute hypoxemic respiratory failure: Status: Acute (3) Microcytic anemia: Status: Acute (4) Tobacco dependency: Status: Acute Reason for Visit Reason for Visit: asthma attack Hospital Course Hospital Course This is a 35-year-old female who presented to the ER with complaints of shortness of breath that occurred 1 day prior to visit. The patient was intubated emergently. There was some thought that she might of had some airway reaction to glad air freshener. The patient was admitted for acute respiratory failure likely secondary to asthma exacerbation. The patient was sedated. Placed on ventilator. Pulmonary critical care was consulted. Duo nebs were ordered. Steroids were ordered. She was noted to have anemia. Thought secondary to iron deficiency. The patient was eventually extubated. Her oxygen requirements decreased. She is also noted to have a bottle of coag negative blood culture. This was thought to be contaminant. She had a negative MRSA PCR. Her sputum culture did show staph aureus. She was discharged on Augmentin. The patient was also treated for alcohol use. Given Ativan as needed as well as thiamine. Prescriptions were given at discharge including steroids. She was recommended to follow-up with pulmonary in their clinic. Physical Exam Const: COMMON NORMALS: no acute distress and patient oriented x3 GENERAL APPEARANCE: cooperative, comfortable and well kempt Resp: COMMON NORMALS: normal respiratory effort, No retractions and clear to auscultation bilaterally AUSCULTATION: clear to auscultation bilaterally Cardio: COMMON NORMALS: regular rate and regular rhythm RATE: regular rate RHYTHM: regular rhythm GI: PALPATION: Yes Soft to palpation and No Tenderness to palpation present (GI) Neuro: COMMON NORMALS: patient oriented x3 and gait normal Psych: COMMON NORMALS: mental status grossly normal and Normal thought process present APPEARANCE: Yes well kempt THOUGHT PROCESS: Normal thought process present Skin: COMMON NORMALS: no rashes or lesions noted and no wounds GENERAL SKIN EXAM: no rashes or lesions noted Urinary Catheter Management^: Estrada: Cath Placed During This Visit: yes, but has since been removed by the nurse Reason for Continuing Indwelling Catheter: Accurate Measurement of Urinary Output in Critically Ill Patients Date Urinary Catheter Removed: 09/21/20 Time Urinary Catheter Discontinued: 08:30 Discharge Data Data Completed and Pending: Completed Studies During Hospitalization Category Date Time Status CT angio chest PE protcl [id number] Stat Cat Scan 09/18/20 06:14 Completed XR chest 1V hank ble [id number] Routine Exams 09/19/20 07:00 Completed XR chest 1V hank ble [id number] Routine Exams 09/20/20 07:00 Completed XR chest 1V hank ble [id number] Stat Exams 09/18/20 07:14 Completed XR chest 1V hank ble [id number] Urgent Exams 09/18/20 04:27 Completed Pending at discharge Category Date Time Status BMP [Basic [employer] lic Panel] Stat Lab 09/23/20 10:37 Ordered Blood Culture Sta t Lab 09/19/20 12:57 Results Fecal Occult Bloo d [Immunochemical Fecal OCB] Routine Lab 09/23/20 10:31 Ordered Vitals: Last Vital Signs Temp 97.4 F L 09/23/20 08:00 Pulse 94 09/23/20 08:06 Resp 18 09/23/20 08:00 BP 136/86 09/23/20 08:00 Pulse Ox 94 09/23/20 08:00 Discharge Plan Discharge Patient Disposition: Home Condition: Stable Prescriptions: New Advair Diskus 500-50 mcg/dose Blister With Device 1 puff inhalation BID.RESPIRATORY Qty: 1 RF: 0 montelukast 10 mg Tablet 10 mg PO QPM Qty: 30 RF: 0 prednisone 20 mg Tablet 40 mg PO DAILY Qty: 10 RF: 0 Augmentin 875-125 mg tablet 1 tab PO BID Qty: 14 RF: 0 Continued norethindrone (contraceptive) 0.35 mg tablet 0.35 mg PO . DIRECTED RF: 0 albuterol sulfate 2.5 mg /3 mL (0.083 %) solution for nebulization 2.5 mg inhalation Q6H PRN (Reason: Shortness Of Breath) Qty: 180 RF: 0 Zyrtec 10 mg Tablet 10 mg PO DAILY PRN (Reason: Allergy Symptoms) Qty: 30 RF: 0 ProAir HFA 90 mcg/actuation Hfa Aerosol Inhaler 2 puff INHALATION Q4H PRN (Reason: Shortness Of Breath) Qty: 1 RF: 0 Discontinued budesonide 0.5 mg/2 mL Suspension For Nebulization 0.5 mg inhalation PRN RF: 0 Breo Ellipta 100-25 mcg/dose Blister With Device 1 inh INHALATION DAILY RF: 0 Discharge Orders: Discharge Order (Routine); Ordered 09/23/20 Ordered By: Darryl Gonzalez Referrals: Po Redmond NP [Referring] - 09/26/20 10:30 am (Please see Po Redmond [facility] for Hospital Follow Up Appointment. ) Discharge Diet: Advance as tolerated and Usual diet Discharge Activity: Resume usual activity Patient Instructions: Asthma - Adult, Prednisone (By mouth), Amoxicillin/Clavulanate Potassium (By mouth), Montelukast (By mouth), Fluticasone/Salmeterol (By breathing), How to Stop Smoking (DC), Abuse of Alcohol (DC) Activity Restrictions/Additional Instructions: activity as tolerated Discharge Attestations Time Spent in Discharge Care*: less than 30 min Quality Metrics Clinical Quality Measures During this hospital stay, did patient experience: None Coding Level of Care Code Acute Ampoule Filler for [facility] Fwd Exam Detailed Diagnoses Asthma with exacerbation J45.901 Asthma persistence: unspecified Asthma severity: severe Acute hypoxemic respiratory failure J96.01 Microcytic anemia D50.9 Tobacco dependency F17.200
[2020-09-23 11:58] LABS: Anion Gap 16.3 (5-19); Blood Urea Nitrogen 14 mg/dL (6-20); Calcium 9.2 mg/dL (8.5-10.5); Carbon Dioxide 24 mmol/L (22-29); Chloride 103 mmol/L (98-107); Glomerular Filtration Rate 80.7 mL/min (90-130); Glucose 117 mg/dL (65-115); Osmolality Calculated 290 mOsm/kg (285-295); Potassium 4.3 mmol/L (3.5-5.1); Sodium 139 mmol/L (136-145)
--- NOTE | 2020-09-23 13:27 | PC.NURSE ---
pt iv taken out and intact. discharge instructions explained and all questions answered. pt taken to surgical services entrance via wheelchair.
== END 2020-09-23 13:31 | disposition home or self-care (01) | DRG 208 ==
LOC: ER 06:27 → ICU 11:02 → MEDSURG 09-21 16:02
PROVIDERS: Emergency Medicine; Internal Medicine; Admitting Provider Internal Medicine; Emergency Provider Family Medicine; Visit Provider Internal Medicine
DX: J45.901 Unspecified asthma with (acute) exacerbation (principal); J96.01 Acute respiratory failure with hypoxia; J95.859 Other complication of respirator [ventilator]; F17.210 Nicotine dependence, cigarettes, uncomplicated; F10.20 Alcohol dependence, uncomplicated; D50.9 Iron deficiency anemia, unspecified; I10 Essential (primary) hypertension; E89.0 Postprocedural hypothyroidism; A49.01 Methicillin susceptible Staphylococcus aureus infection, unspecified site; Z79.51 Long term (current) use of inhaled steroids
CPT/HCPCS: 12345; 31500; 36415; 36430; 36600; 51702; 71045; 71275; 80048; 80051; 80053; 82274; 82330; 82607; 82728; 82746; 82803; 82805; 83540; 83550; 83605; 83735; 83880; 84145; 84443; 85014; 85018; 85025; 85378; 86850; 86900; 86920; 87040; 87070; 87077; 87086; 87186; 87205; 87426; 87635; 87641; 87804; 93005; 94002; 94003; 94640; 94799; 96372; 96375; 99284; A4570; C9113; J0171; J0280; J0330; J0360; J0456; J1650; J2060; J2250; J2405; J2543; J2704; J2930; J3010; J3411; J3475; J3490; J3535; J7030; J7040; J7050; J7512; J7611; J7626; P9016; Q0144; Q9967

== ENCOUNTER 2022-04-23 15:04 | Outpatient (CLI) | payer BC, SELFPAY ==
--- NOTE | 2022-04-23 15:13 | MM_ITS ---
WS: [id number] BILATERAL 3D TOMOSYNTHESIS DIGITAL DIAGNOSTIC MAMMOGRAPHY WITH CAD CLINICAL INFORMATION: LEFT BREAST PAIN HISTORY: Diagnostic mammogram. LEFT breast pain COMPARISON: None. TECHNIQUE: Bilateral CC and MLO views. FINDINGS: Scattered fibroglandular densities bilaterally. No suspicious focal mass, asymmetry, calcifications, or architectural distortion. A few incidental punctate calcifications. Ultrasound is pending of the a arpit of concern LEFT breast. ULTRASOUND BREAST LEFT TECHNIQUE: Ultrasound left breast focused area of concern. CLINICAL INFORMATION: LEFT BREAST PAIN COMPARISON: None. FINDINGS: Ultrasound LEFT breast at the 5 to 7:00 position 5 cm from the nipple in the area of concern. Normal underlying parenchymal tissue. No cystic or solid lesions. No lesions to target for biopsy. Recommend return to annual screening mammography. MM/[place] [id number] IMPRESSION: BI-RADS: 2-Benign FOLLOW UP: 1 Year Follow-up Recommend return to annual screening mammography.
--- NOTE | 2022-04-23 15:22 | US_ITS ---
WS: [id number] BILATERAL 3D TOMOSYNTHESIS DIGITAL DIAGNOSTIC MAMMOGRAPHY WITH CAD CLINICAL INFORMATION: LEFT BREAST PAIN HISTORY: Diagnostic mammogram. LEFT breast pain COMPARISON: None. TECHNIQUE: Bilateral CC and MLO views. FINDINGS: Scattered fibroglandular densities bilaterally. No suspicious focal mass, asymmetry, calcifications, or architectural distortion. A few incidental punctate calcifications. Ultrasound is pending of the a arpit of concern LEFT breast. ULTRASOUND BREAST LEFT TECHNIQUE: Ultrasound left breast focused area of concern. CLINICAL INFORMATION: LEFT BREAST PAIN COMPARISON: None. FINDINGS: Ultrasound LEFT breast at the 5 to 7:00 position 5 cm from the nipple in the area of concern. Normal underlying parenchymal tissue. No cystic or solid lesions. No lesions to target for biopsy. Recommend return to annual screening mammography. US/US breast LT limited* [id number] IMPRESSION: BI-RADS: 2-Benign FOLLOW UP: 1 Year Follow-up Recommend return to annual screening mammography.
== END 2022-04-23 15:05 | disposition home or self-care (01) ==
PROVIDERS: Visit Provider Nurse Practitioner Family
DX: N64.4 Mastodynia (principal)
CPT/HCPCS: 76642; 77062

== ENCOUNTER 2022-08-27 05:41 | Day surgery (SDC) | payer BC, MEDICAID, SELFPAY ==
[2022-08-26 13:30] VITALS: BMI 34.3
[2022-08-27] VITALS (13 sets, daily range): BP systolic 133–150; BP diastolic 72–100; PULSE 67–90; RESP 16–20; TEMP 36.2–37; O2SAT 96–99
--- NOTE | 2022-08-27 06:11 | W.PM.OPSUD ---
Surgery/Procedure H&P Update DATE OF PROCEDURE: August 27, 2022 DATE H&P PERFORMED: 07/31/22 H&P UPDATE INFORMATION: I have reviewed H&P completed within last 30 days, I have examined patient prior to procedure and No changes to prior documentation PREOP DIAGNOSIS: Bleeding hemorrhoid PRIMARY INDICATION FOR PROCEDURE: The same PLANNED PROCEDURE: Operation Date: 08/27/22 07:00 Proposed Procedures p colonoscopy with possible biopsy with possible polypectomy and examination anesthesia with possible hemorrhoidectomy [id number],K64.9(Not Applicable) - Otis Watters MD s Exam Under Anesthesia(Not Applicable) - Otis Watters MD s Hemorroidectomy(Not Applicable) - Otis Watters MD
[2022-08-27] MEDS: sodium chloride 0.9% 1,000 ML 30 ML IV (06:23)
[2022-08-27] MEDS: acetaminophen 1,000 MG/100 ML PIGGYBACK 400 MG IV (06:25)
--- NOTE | 2022-08-27 06:29 | ANES.PREANE2 ---
Pre-Anesthetic Assessment Height/Weight: Height 1.63 m Weight 90.718 kg Preop Diagnosis: Bleeding hemorrhoid Operation Date: 08/27/22 07:00 Proposed Procedures p colonoscopy with possible biopsy with possible polypectomy and examination anesthesia with possible hemorrhoidectomy 24439 [id number] 25074,K64.9(Not Applicable) - Otis Watters MD s Exam Under Anesthesia(Not Applicable) - Otis Watters MD s Hemorroidectomy(Not Applicable) - Otis Watters MD Familial anesthetic complications: None Was Beta Jacqui taken within 24 hours: N/A Was Clonidine taken within 24 hours: N/A Last Intake: 22:30 (08/26/22) Social Alcohol (Couple beers daily) and Tobacco (Marijuana) Exam alert, oriented x 3, clear to auscultation bilaterally and regular rate & rhythm Airway Submandibular: within normal limits Cervical ROM: within normal limits Mallampati: Class II Dentition: full History/ROS No significant history except as noted and No significant complaints Pulmonary Asthma (Daily inhaler, used this morning) Seasonal allergies CV/HEM None reported None reported Hepatic None reported GI None reported Gallbladder removed 2007 Metabolic Thyroid Disease (Hemithyroidectomy 2 years ago, no complications ) Musc/skel Lower Back Pain Neuropsych Anxiety Anesthetic Plan ASA status: 2 Anesthesia: Anesthesia Evaluation, General and MAC Risk of > 500 ml blood loss (7ml/kg in children): No Medications/Allergies Home Medications Medication Instructions Recorded Confirmed Last Taken Type norethindrone (contraceptive) 0.35 0.35 mg PO . DIRECTED 09/18/20 08/27/22 08/26/22 History mg tablet albuterol sulfate 2.5 mg/3 mL 2.5 mg (3 mL) inhalation Q6H PRN 09/22/20 08/27/22 Unknown Rx (0.083 %) solution for nebulization Shortness Of Breath #180 mL albuterol sulfate 90 mcg/actuation 2 puff inhalation Q4H PRN 09/22/20 08/27/22 08/13/22 Rx aerosol inhaler (ProAir HFA) Shortness Of Breath #1 g cetirizine 10 mg tablet (Zyrtec) 10 mg PO DAILY PRN Allergy 09/22/20 08/27/22 08/27/22 Rx Symptoms #30 tabs montelukast 10 mg tablet 10 mg PO QPM #30 tabs 09/22/20 08/27/22 08/27/22 Rx ferrous sulfate [Iron (ferrous 325 mg PO 2XD 07/31/22 08/27/22 08/21/22 History sulfate)] fluticasone furoate 200 1 inh inhalation DAILY 07/31/22 08/27/22 08/27/22 History mcg-vilanterol 25 mcg/dose inhalation powder (Breo Ellipta) fluoxetine 20 mg tablet 20 mg PO 1XD 08/26/22 08/27/22 08/25/22 History Allergies Allergy/AdvReac Type Severity Reaction Status Date / Time No Known Allergies Allergy Verified 08/26/22 13:24 [facility] Anesthesia Medical History Acute hypoxemic respiratory failure Asthma Hypertension Microcytic anemia Tobacco dependency Surgical History H/O partial thyroidectomy Social History Smoking and tobacco status: former smoker Alcohol intake: current Alcohol intake frequency: 3 or more drinks per day Alcohol type: beer Lives independently: Yes Household members: spouse and children Marital status: Data Anesthesia Cardiac Studies: No Data to Display
[2022-08-27] MEDS: piperacillin-tazobactam 3.375 GM in sodium chloride 0.9% (plus) 50 ML IV (06:58)
--- NOTE | 2022-08-27 08:03 | P.OP_ITS ---
Operative Report Date of procedure: August 27, 2022 Pre-op diagnosis: Preop Diagnosis Bleeding hemorrhoid Post-op findings: Normal colonoscopy findings Procedure done: 1-Colonoscopy 2-Examination under anesthesia with hemorrhoidectomy Specimens removed/disposition: Left lower lateral hemorrhoid Right lower lateral hemorrhoid Surgeon: Otis Watters MD Reimbursement Director: air and hydronic balancing technician Diony Circulating nurse Lola Anesthesia: General (NETWORK SYSTEMS CONSULTANT Donny) Estimated blood loss (mL): 10 IV fluids (mL): 800 Procedure: Patient was identified in the holding area, was taken to the OR placed first in supine position,IV antibiotics were given with induction time-out was done verifying the patient's name, date of , and procedure, all were in agreement. General anesthetic was administered by the anesthesia provider and LMA was placed, patient was placed in left lateral position SCDs were on and functioning. All pressure points were padded. Perianal examination showed extensive external hemorrhoids. Following that a digital rectal examination was done no masses per digital rectal exam, the colonoscope was then introduced via the anus under direct visualization, all the way to the proximal to the cecum, normal examination. Otherwise there were no polyps identified or masses or diverticular disease or strictures, the scope was then retrieved back, gas was deflated on the way out.Retroflex was done at the end showing showed no evidence of internal hemorrhoids, time to retrieve the scope from the cecum to the anus exceeded 6 minutes. Prep and drape of the perineum was done under the usual sterile technique All pressure points were padded,Injection of 30 mL of Exparel to block the pudendal nerve on both sides,guiding point was the ischial spine on each side located by the examining finger A lubricated self-retaining proctoscope was inserted, evidence of external hemorrhoid below the dentate line Started by introducing a wet sponge to prevent any residual colon prep from c ontaminating the site of the excision, and under direct visualization I started dissecting the left lower lateral hemorrhoid tissues after application of hemostats,dissection was carried by using the harmonic scalpel, excised tissues were sent for permanent pathology, followed by interrupted figure of 8, 2-0 chromic catgut. Same technique was used for the right lower lateral hemorrhoid and harmonic scalpel was used to excise it and chromic catgut 2 oh was used as [id number]. Specimens were sent for permanent pathology Hemostasis was achieved, irrigation was done, sponge was retrieved. Patient continued to have anterior chronic skin tag yet large. I elected not to proceed with surgical excision due to the potential high risk of developing a anal stenosis. Followed by irrigation.A piece of Surgicel /piece of Xeroform impregnated with lubricant jelly was placed in the anal canal, attached to 2-0 silk suture, to help retrieving it by the patient later on. ABDs were applied followed by surgical pants. Patient was repositioned to supine position, counts of instruments,needles and sponges were completed at the end of the procedure Recommend colonoscopy in 10 years
[2022-08-27] MEDS: fentaNYL 50 mcg/mL INJ 2mL IVP ×2 (08:24→08:31)
--- NOTE | 2022-08-27 08:41 | SUR.PHASEI ---
0811 PT TO PACU 5 AWAKE TALKATIVE ID BAND TO LT WRIST , PT ID'D WITH 2 IDENTIFIERS, IV TO RT WRIST #20 NS PATENT 50ML NS AT KVO RATE PER GRAVITY. MONITOR SR WITH NO ECTOPY, RECTAL PACKING STRETCH BRIEF, BILAT SCDS ON,
[2022-08-27] MEDS: HYDROcodone-acetaminophen 5-325 mg Tablet 1 TAB PO (09:02)
[2022-08-27 09:53] LABS: OR HCG Qualitative Urine Negative (Negative)
--- NOTE | 2022-08-27 15:28 | ANE.PACU2 ---
Inpatient post-anesthesia follow up: Airway intact: Yes Vital signs: Temperature 98.6 F Pulse Rate 81 Respiratory Rate 18 Blood Pressure 146/92 Pulse Oximetry 99 Oxygen Delivery Me thod Room Air Oxygen Flow Rate Fraction of Inspir ed Oxygen Hydration adequate: Yes Nausea and vomiting: No Pain level: 2 Mental status: Baseline
== END 2022-08-27 09:27 | disposition home or self-care (01) ==
PROVIDERS: Anesthesiology; PCP Nurse Practitioner Family; Visit Provider Surgery
PROC: 0DJD8ZZ Inspection of Lower Intestinal Tract, Via Natural or Artificial Opening Endoscopic (ICD-10-PCS; CPT 45378; principal; 2022-08-27 07:00)
PROC: (CPT 45378; 2022-08-27 07:00)
PROC: (CPT 45378; 2022-08-27 07:00)
DX: K64.9 Unspecified hemorrhoids (principal); J45.909 Unspecified asthma, uncomplicated; F41.9 Anxiety disorder, unspecified; I10 Essential (primary) hypertension; Z87.891 Personal history of nicotine dependence
CPT/HCPCS: 45378; 46250; 81025; 84703; 88304; C9290; J0131; J1100; J2250; J2405; J2543; J2704; J3010; J3490; J7030

== ENCOUNTER 2022-09-04 16:49 | Emergency (ER) | payer BC, MEDICAID, SELFPAY ==
[2022-09-04 16:55] VITALS: BP 171/71; PULSE 100; RESP 18; TEMP 37.7; O2SAT 97; BMI 34.3
--- NOTE | 2022-09-04 17:25 | W.ED.GENADLT ---
HPI - General Adult General: Chief complaint: General Medical Stated complaint: Possible Post op infection Time Seen by Provider: 09/04/22 17:04 Source: patient Mode of arrival: ambulatory History of Present Illness: 37-year-old female who is 8 days postop hemorrhoidectomy done in our facility. She is complaining of pain and she is noted to have a little low-grade fever when she first arrived here. She refers the pain to the right groin area she thought she felt something very exquisitely tender there. She had not noted a fever at home. She has been nauseous but no vomiting or diarrhea. She denies any exquisite abdominal pain she has been urinating normally. She has been very cautious with walking because of discomfort from the surgical area. Onset (ago): day(s) Location: pelvis Severity: moderate Quality: sharp Pain Consistency: intermittent Relieving factors: none Exacerbating factors: other (Palpation) Associated symptoms: Deny chest pain, confusion, cough, diaphoresis, decreased appetite, dyspnea, fevers/chills, headache(s), malaise, nausea, rash, palpitations, seizures, short of breath, syncope, vomiting or weakness Treatments prior to arrival: none Review of Systems Const: Reports: fever(s); Denies: chills, fatigue, malaise or diaphoresis ENMT: Denies: throat pain, ear or mastoid pain, nasal discharge or nasal congestion Card: Denies: chest pain, palpitations or syncope Resp: Denies: dyspnea GI: Denies: abdominal pain, nausea or vomiting : Denies: flank pain, difficulty voiding, dysuria, urinary frequency or urinary urgency Skin/Breast: Denies: rash Neuro: Denies: headache(s) or confusion PFSH ED PFSH: Medical History Acute hypoxemic respiratory failure Asthma Hypertension Microcytic anemia Tobacco dependency Surgical History H/O partial thyroidectomy Social History Smoking and tobacco status: former smoker Alcohol intake: current Alcohol intake frequency: 3 or more drinks per day Alcohol type: beer Lives independently: Yes Household members: spouse and children Marital status: Physical Exam Const: COMMON NORMALS: no acute distress GENERAL APPEARANCE: cooperative and comfortable ORIENTATION/CONSCIOUSNESS: Yes awake, Yes oriented to person, Yes oriented to place and Yes oriented to time HENMT: COMMON NORMALS: normocephalic, atraumatic and hearing grossly normal bilaterally HEAD & SCALP: normocephalic and atraumatic Eye: COMMON NORMALS: Equal, round and reactive pupils present, EOMs intact bilaterally, conjunctivae normal and no scleral icterus CONJUNCTIVA: Yes conjunctivae normal PUPIL: Yes Equal, round and reactive pupils present Neck/C-Spine: COMMON NORMALS: full ROM, no lymphadenopathy, supple and no JVD Lymph: LYMPHATIC: no lymphadenopathy noted and no lymphedema noted Resp: COMMON NORMALS: normal respiratory effort, No retractions, No use of accessory muscles and clear to auscultation bilaterally AUSCULTATION: clear to auscultation bilaterally Cardio: COMMON NORMALS: no JVD, regular rate, regular rhythm and No murmurs present (Cardio) RATE: regular rate RHYTHM: regular rhythm GI: COMMON NORMALS: Soft to palpation and No hepatosplenomegaly present AUSCULTATION: Yes normoactive bowel sounds PALPATION: Yes Soft to palpation, No Tenderness to palpation present (GI), No Guarding due to palpation present (GI) and Yes No hepatosplenomegaly present Back/Pelvis: OTHER: Mom enlarged inguinal lymph node on the right in the area of patient's discomfort. Exquisite reproducible pain with palpation over the pubic tubercle Extremity: COMMON NORMALS: normal to inspection, capillary refill normal, no clubbing, cyanosis or edema, no calf tenderness and no pedal edema Neuro: SENSORIUM/ORIENTATION: Yes oriented to person, Yes oriented to place and Yes oriented to time Skin: COMMON NORMALS: no rashes or lesions noted GENERAL SKIN EXAM: no rashes or lesions noted Course Vital Signs: Vital signs: Vital Signs Temperature 98.4 F 09/04/22 18:39 Pulse Rate 73 09/04/22 19:09 Respiratory Rate 14 09/04/22 19:09 Blood Pressure 139/86 09/04/22 19:09 Pulse Oximetry 100 09/04/22 19:09 Oxygen Delivery Me thod 09/04/22 16:55 MDM - General Adult Medical Decision Making Low-grade temp on arrival resolved spontaneously. Patient is feeling better. On exam she has pain with palpation over the pubic tubercle on the right. Examination of the rectal area appears normal status post hemorrhoidectomy. No bleeding no sign of infection. Labs and imaging reviewed she is significantly anemic but this is chronic she is aware of it she had been taking iron but stopped because of her hemorrhoidectomy encouraged her to follow-up with her primary care doctor at this point she is stable not tachycardic. No think she needs emergent transfusion. She may benefit from referral for eye infusions at some point in the future. We will discharge patient home pain medications given follow-up with general surgery as scheduled primary care as needed and for her anemia. Medical Records I reviewed the patient's medical records. Lab Data I reviewed the patient's lab results. 09/04/22 17:21 09/04/22 17:21 Laboratory Results WBC 5.9 10^3/uL (4.0-10.0) 09/04/22 17:21 RBC 3.80 10^6/uL (4.1-5.3) L 09/04/22 17:21 Hgb 7.8 g/dL (11.5-15.3) L 09/04/22 17:21 Hct 27.7 % (37.0-47.0) L 09/04/22 17:21 MCV 72.9 fl (81-99) L 09/04/22 17:21 MCH 20.5 pg (28.0-34.0) L 09/04/22 17:21 MCHC 28.2 g/dL (30.0-36.0) L 09/04/22 17:21 RDW 15.6 % (12.1-15.1) H 09/04/22 17:21 Plt Count 315 10^3/cmm (130-400) 09/04/22 17:21 MPV 9.2 fL (7.4-10.4) 09/04/22 17:21 Neut % (Auto) 68.8 % 09/04/22 17:21 Lymph % (Auto) 19.3 % 09/04/22 17:21 [place] % (Auto) 8.5 % 09/04/22 17:21 Eos % (Auto) 1.9 % 09/04/22 17:21 Baso % (Auto) 1.0 % 09/04/22 17:21 Neut # (Auto) 4.06 10^3/uL (1.8-7.7) 09/04/22 17:21 Lymph # (Auto) 1.1 10^3/uL (0.8-4.8) 09/04/22 17:21 [place] # (Auto) 0.5 10^3/uL (0.2-0.9) 09/04/22 17:21 Eos # (Auto) 0.1 10^3/uL (0.0-0.8) 09/04/22 17:21 Baso # (Auto) 0.1 10^3/uL (0.0-0.1) 09/04/22 17:21 Nucleated RBC % (auto) 0 % 09/04/22 17:21 Nucleated RBCs # 0.0 /100WBC 09/04/22 17:21 Sodium 137 mmol/L (136-145) 09/04/22 17:21 Potassium 3.4 mmol/L (3.5-5.1) L 09/04/22 17:21 Chloride 99 mmol/L (98-107) 09/04/22 17:21 Carbon Dioxide 25 mmol/L (22-29) 09/04/22 17:21 Anion Gap 16.4 (5-19) 09/04/22 17:21 BUN 6 mg/dL (6-20) 09/04/22 17:21 Creatinine 0.6 mg/dL (0.5-0.9) 09/04/22 17:21 GFR Calculation 111.3 mL/min (90-130) 09/04/22 17:21 Glucose 94 mg/dL (65-115) 09/04/22 17:21 Calculated Osmolality 281 mOsm/kg (285-295) L 09/04/22 17:21 Calcium 9.4 mg/dL (8.5-10.5) 09/04/22 17:21 Urine Color Yellow (Yellow) 09/04/22 17:49 Urine Appearance Clear (CLEAR) 09/04/22 17:49 Urine pH 7 (5-7) 09/04/22 17:49 Ur Specific [place] 1.010 (1.005-1.030) 09/04/22 17:49 Urine Protein Neg (Negative) 09/04/22 17:49 Urine Glucose (UA) Norm (Normal) 09/04/22 17:49 Urine Ketones Negative (Negative) 09/04/22 17:49 Urine Blood Neg (Negative) 09/04/22 17:49 Urine Nitrate Negative (Negative) 09/04/22 17:49 Urine Bilirubin Neg (Negative) 09/04/22 17:49 Urine Urobilinogen Norm mg/dL (Negative) 09/04/22 17:49 Ur Leukocyte Esterase Negative (Negative) 09/04/22 17:49 Discharge Plan Discharge Patient Disposition: Home Clinical Impression: Groin strain, S/P hemorrhoidectomy, Iron deficiency anemia Condition: Stable Prescriptions: New tramadol 50 mg tablet 50 mg PO Q8H PRN (Reason: pain) Qty: 10 0RF No Action fluticasone furoate-vilanterol [Breo Ellipta] 200-25 mcg/dose blister with device 1 inh inhalation DAILY ferrous sulfate [Iron (ferrous sulfate)] 325 mg PO 2XD lidocaine 5 % cream 1 applic topical BID PRN (Reason: pain) Qty: 30 0RF norethindrone (contraceptive) 0.35 mg tablet 0.35 mg PO . DIRECTED montelukast 10 mg Tablet 10 mg PO QPM Qty: 30 0RF albuterol sulfate 2.5 mg /3 mL (0.083 %) solution for nebulization 2.5 mg inhalation Q6H PRN (Reason: Shortness Of Breath) Qty: 180 0RF Rx Instructions: pts states the pt used this medication last night cetirizine [Zyrtec] 10 mg Tablet 10 mg PO DAILY PRN (Reason: Allergy Symptoms) Qty: 30 0RF albuterol sulfate [ProAir HFA] 90 mcg/actuation Hfa Aerosol Inhaler 2 puff INHALATION Q4H PRN (Reason: Shortness Of Breath) Qty: 1 0RF fluoxetine 20 mg tablet 20 mg PO 1XD hydrocodone-acetaminophen 5-325 mg tablet 1 tab PO Q6H PRN (Reason: pain) Qty: 28 0RF Discharge Orders: Discharge ED (Routine); Ordered 09/04/22 Ordered By: Felipe Artis Referrals: Ele Santos FNP [Primary Care Provider] - Discharge Diet: Usual diet Discharge Activity: Resume usual activity Patient Instructions: Opioid Safety, Pain Management Activity Restrictions/Additional Instructions: Use tramadol as needed for pain. Continue previous instructions from Dr. Watters regarding the hemorrhoidectomy surgery. Follow-up with your primary care doctor regarding your anemia. Coding Level of Care Code ED Fire Lieutenant Marine for Chg Fwd Exam Comprehensive
[2022-09-04 17:29] LABS: Basophils # 0.1 10^3/uL (0.0-0.1); Eosinophils # 0.1 10^3/uL (0.0-0.8); Eosinophils % 1.9 %; Hematocrit 27.7 % (37.0-47.0); Hemoglobin 7.8 g/dL (11.5-15.3); Lymphocytes # 1.1 10^3/uL (0.8-4.8); Lymphocytes % 19.3 %; Mean Corpuscular HGB Conc 28.2 g/dL (30.0-36.0); Mean Corpuscular Hemoglobin 20.5 pg (28.0-34.0); Mean Corpuscular Volume 72.9 fl (81-99); Mean Platelet Volume 9.2 fL (7.4-10.4); Monocytes # 0.5 10^3/uL (0.2-0.9); Monocytes % 8.5 %; Neutrophils # 4.06 10^3/uL (1.8-7.7); Neutrophils % 68.8 %; Nucleated Red Blood Cells % 0 %; Platelet Count 315 10^3/cmm (130-400); Red Cell Distribution Width 15.6 % (12.1-15.1); White Blood Count 5.9 10^3/uL (4.0-10.0)
--- NOTE | 2022-09-04 17:30 | PC.NURSE ---
pt reports had a colonoscopy and a hemorroidectomy on Friday, reports continued pain from rectum now radiating up groin. now reports she feels a bump in the right inguinal region. pt reports she hasnt noticed a fever but was told she had a low grade fever. denies nausea or vomiting. pt respirations even and unlabored. lung sounds clear bilat. skin pink/warm/dry.
[2022-09-04 17:58] LABS: Add Urine Microscopic? NO; Charge for UA Resulting for Rev
[2022-09-04 17:59] LABS: Bilirubin Urine Neg (Negative); Blood Urine Neg (Negative); Glucose Urine UA Norm (Normal); Ketones Urine Negative (Negative); Leukocyte Esterase Urine Negative (Negative); Nitrate Urine Negative (Negative); Protein Urine Neg (Negative); Urine Appearance Clear (CLEAR); Urine Color Yellow (Yellow); Urobilinogen Urine Norm (Negative); pH Urine 7 (5-7)
[2022-09-04 18:13] LABS: Anion Gap 16.4 (5-19); Blood Urea Nitrogen 6 mg/dL (6-20); Calcium 9.4 mg/dL (8.5-10.5); Carbon Dioxide 25 mmol/L (22-29); Chloride 99 mmol/L (98-107); Glomerular Filtration Rate 111.3 mL/min (90-130); Glucose 94 mg/dL (65-115); Osmolality Calculated 281 mOsm/kg (285-295); Potassium 3.4 mmol/L (3.5-5.1); Sodium 137 mmol/L (136-145)
[2022-09-04 18:39] VITALS: TEMP 36.9
[2022-09-04 19:09] VITALS: BP 139/86; PULSE 73; RESP 14; O2SAT 100
== END 2022-09-04 19:09 | disposition home or self-care (01) ==
PROVIDERS: Emergency Provider Family Medicine; PCP Nurse Practitioner Family
DX: S39.011A Strain of muscle, fascia and tendon of abdomen, initial encounter (principal); D50.9 Iron deficiency anemia, unspecified; Z98.890 Other specified postprocedural states; I10 Essential (primary) hypertension; Z87.891 Personal history of nicotine dependence; X58.XXXA Exposure to other specified factors, initial encounter
CPT/HCPCS: 80048; 81003; 85025; 99283

== ENCOUNTER 2022-11-16 14:46 | Emergency (ER) | payer BC, MEDICAID, SELFPAY ==
[2022-11-16 14:48] VITALS: BP 152/102; PULSE 58; RESP 18; TEMP 36.4; O2SAT 98; BMI 33.6
--- NOTE | 2022-11-16 14:50 | ECG_ITS ---
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 Measurements Intervals [place] Rate: 52 P: 42 RI: 179 QRS: 53 QRSD: 88 T: 50 QT: 482 QTc: 451 Interpretive Statements SINUS BRADYCARDIA WITH SINUS ARRHYTHMIA Compared to ECG 09/18/2020 04:31:22 Sinus tachycardia no longer present Electronically Signed On 11-17-2022 11:22:13 LATEX FASHIONS DESIGNER by Rasheed Martinez M.D. [email or web address] central regional medical [email or web address] Technologieskindred hospital daytonEnTouch [id number]
--- NOTE | 2022-11-16 14:50 | XRR_ITS ---
PROCEDURE INFORMATION: Exam: XR Chest Exam date and time: 11/16/2022 3:09 PM Age: 37 years old Clinical indication: Pain; Chest pressure; Additional info: Cp TECHNIQUE: Imaging protocol: Radiologic exam of the chest. Views: 1 view. COMPARISON: CR XR chest 1V portable [id number] 09/20/2020 4:53 AM FINDINGS: Lungs: Unremarkable. No consolidation. Pleural spaces: Unremarkable. No pleural effusion. No pneumothorax. Heart/Mediastinum: Unremarkable. No cardiomegaly. Bones/joints: Unremarkable. XR/XR chest 1V portable [id number] IMPRESSION: No acute findings.
--- NOTE | 2022-11-16 15:09 | ED_ITS ---
HPI - Nausea/Vomiting/Diarrhea General: Chief complaint: Nausea/Vomiting/Diarrhea Stated complaint: N/V; CHEST PAIN Time Seen by Provider: 11/16/22 14:50 Source: patient Mode of arrival: ambulatory Limitations: no limitations History of Present Illness: 37-year-old female states she been having nausea v omiting since this morning states she is on multiple times states she has now been having a burning in her chest and some upper abdominal pain states she has felt ill throughout the day she denies any fever she denies any cough denies any worsening improving factors. Associated nausea: Yes Associated symtoms: Reports chest pain and nausea; Denies dysuria or headache(s) Review of Systems Const: Denies: fever(s), chills, body aches or change in appetite Eyes: Denies: blurry vision or eye discomfort ENMT: Denies: throat pain or dental pain Card: Reports: chest pain Resp: Denies: dyspnea GI: Reports: nausea and vomiting : Denies: dysuria Musc: Denies: neck pain or back pain Skin/Breast: Denies: rash Neuro: Denies: headache(s) Psych: Denies: depression Jamil/Lymph: Denies: easy bruising All/Imm: Denies: urticaria PFSH ED PFSH: Medical History Acute hypoxemic respiratory failure Asthma Bleeding hemorrhoids Hypertension Microcytic anemia Tobacco dependency Surgical History H/O partial thyroidectomy Social History Smoking and tobacco status: former smoker Alcohol intake: current Alcohol intake frequency: 3 or more drinks per day Alcohol type: beer Lives independently: Yes Household members: spouse and children Marital status: Physical Exam Const: COMMON NORMALS: no acute distress, patient oriented x3 and healthy appearing HENMT: COMMON NORMALS: normocephalic and atraumatic HEAD & SCALP: normocephalic and atraumatic Eye: COMMON NORMALS: Equal, round and reactive pupils present and EOMs intact bilaterally PUPIL: Yes Equal, round and reactive pupils present Neck/C-Spine: COMMON NORMALS: full ROM and supple Chest: COMMONS NORMALS: normal inspection of the chest and normal palpation of entire chest wall Resp: COMMON NORMALS: normal respiratory effort, No retractions, No use of accessory muscles and clear to auscultation bilaterally AUSCULTATION: clear to auscultation bilaterally Cardio: COMMON NORMALS: regular rate, regular rhythm and No murmurs present (Cardio) RATE: regular rate RHYTHM: regular rhythm GI: COMMON NORMALS: Normal to inspection, nondistended, normoactive bowel sounds present, Soft to palpation, non-tender and no masses PALPATION: Yes Soft to palpation Extremity: COMMON NORMALS: normal to inspection and full ROM Neuro: COMMON NORMALS: patient oriented x3, moves all extremities and no focal motor deficits Psych: COMMON NORMALS: mental status grossly normal, Normal thought process present and cooperative THOUGHT PROCESS: Normal thought process present Skin: COMMON NORMALS: no rashes or lesions noted and no wounds GENERAL SKIN EXAM: no rashes or lesions noted Course Vital Signs: Vital signs: Vital Signs Temperature 97.6 F 11/16/22 14:48 Pulse Rate 67 11/16/22 18:00 Respiratory Rate 19 H 11/16/22 18:00 Blood Pressure 160/93 11/16/22 18:00 Pulse Oximetry 100 11/16/22 18:00 Oxygen Delivery Me thod 11/16/22 14:48 MDM - Nausea/Vomiting/Diarrhea Medical Decision Making Patient presents here with vomiting is gotten much improved she had some chest pain to its atypical nature troponins are negative she feels much improved here we will prescribe her Zofran she is stable for discharge she is to follow-up with her PCP and return if worsening. Lab Data 11/16/22 15:28 11/16/22 15:28 Radiology Impressions Chest X-Ray 11/16/22 14:50 IMPRESSION: No acute findings. Laboratory Results WBC 10.0 10^3/uL (4.0-10.0) 11/16/22 15: RBC 5.42 10^6/uL (4.1-5.3) H 11/16/22 15:28 Hgb 12.8 g/dL (11.5-15.3) 11/16/22 15:28 Hct 41.7 % (37.0-47.0) 11/16/22 15: MCV 76.9 fl (81-99) L 11/16/22 15: MCH 23.6 pg (28.0-34.0) L 11/16/22 15: MCHC 30.7 g/dL (30.0-36.0) 11/16/22 15: RDW 24.9 % (12.1-15.1) H 11/16/22 15: Plt Count 327 10^3/cmm (130-400) 11/16/22 15: MPV 9.4 fL (7.4-10.4) 11/16/22 15: Neut % (Auto) 84.2 % 11/16/22 15: Lymph % (Auto) 11.2 % 11/16/22 15: [place] % (Auto) 3.3 % 11/16/22: Eos % (Auto) 0.2 % 11/16/22: Baso % (Auto) 0.6 % 11/16/22: Neut # (Auto) 8.38 10^3/uL (1.8-7.7) H 11/16/22: Lymph # (Auto) 1.1 10^3/uL (0.8-4.8) 11/16/22: [place] # (Auto) 0.3 10^3/uL (0.2-0.9) 11/16/22: Eos # (Auto) 0.0 10^3/uL (0.0-0.8) 11/16/22: Baso # (Auto) 0.1 10^3/uL (0.0-0.1) 11/16/22: Nucleated RBC % (auto) 0 % 11/16/22: Nucleated RBCs # 0.0 /100WBC 11/16/22 15: Sodium 138 mmol/L (136-145) 11/16/22 15: Potassium 3.7 mmol/L (3.5-5.1) 11/16/22: Chloride 103 mmol/L (98-107) 11/16/22 15: Carbon Dioxide 19 mmol/L (22-29) L 11/16/22 15: Anion Gap 19.7 (5-19) H 11/16/22 15: BUN 15 mg/dL (6-20) 01/28/23 15:28 Creatinine 0.6 mg/dL (0.5-0.9) 11/16/22 15:28 GFR Calculation 111.3 mL/min (90-130) 11/16/22 15:28 Glucose 146 mg/dL (65-115) H 11/16/22 15:28 Calculated Osmolality 289 mOsm/kg (285-295) 11/16/22 15:28 Calcium 8.8 mg/dL (8.5-10.5) 11/16/22 15:28 Total Bilirubin 0.4 mg/dL (0.15-1.2) 11/16/22 15:28 AST 16 U/L (0-32) 11/16/22 15: ALT 14 U/L (0-33) 11/16/22 15: Alkaline Phosphatase 60 U/L (35-105) 11/16/22 15:28 Troponin T Baseline 6 ng/L (0-10) 11/16/22 15: Troponin T 120 Minute 6.00 ng/L (0-10) 11/16/22 17:39 Delta Troponin T 0 ABS# (0-10) 11/16/22 17:39 Total Protein 8.1 g/dL (6.6-8.7) 11/16/22 15:28 Albumin 4.2 g/dL (3.5-5.2) 11/16/22 15:28 Globulin 3.9 g/dL (1.3-4.6) 11/16/22 15:28 Lipase 17 U/L (13-60) 11/16/22 15:28 HCG, Qual Negative (Negative) 11/16/22 15:28 Urine Color Straw (Yellow) 11/16/22 17:13 Urine Appearance Cloudy (CLEAR) A 11/16/22 17:13 Urine pH 6.5 (5-7) 11/16/22 17:13 Ur Specific [place] 1.015 (1.005-1.030) 11/16/22 17:13 Urine Protein Neg (Negative) 11/16/22 17:13 Urine Glucose (UA) Norm (Normal) 11/16/22 17:13 Urine Ketones 1+ (Negative) H 11/16/22 17:13 Urine Blood 3+ (Negative) H 11/16/22 17:13 Urine Nitrate Negative (Negative) 11/16/22 17:13 Urine Bilirubin Neg (Negative) 11/16/22 17:13 Urine Urobilinogen Norm mg/dL (Negative) 11/16/22 17:13 Ur Leukocyte Esterase Negative (Negative) 11/16/22 17:13 Urine RBC 80-100 /hpf (0-2) H 11/16/22 17:13 Urine WBC 0-4 /hpf (0-5) H 11/16/22 17:13 Ur Squamous Epith Cells 0-4 /hpf (0-5) H 11/16/22 17:13 Amorphous Sediment Not Reportable 11/16/22 17:13 Urine Bacteria Trace /hpf (NONE) 11/16/22 17:13 Urine Mucus Trace /hpf 11/16/22 17:13 Influenza Type A Ag negative (Negative) 11/16/22 15:37 Influenza Type B Ag negative (Negative) 11/16/22 15:37 SARS-CoV-2 Ag (Rapid) negative (Negative) 11/16/22 15:37 EKG Data EKG 1: I personally reviewed and interpreted this EKG as follows: EKG interpretation date: 11/16/22 EKG interpretation time: 15:06 Interpretation: sinus rohith hr [address] or t wave abnormalities qrs 88 qtc 463 Discharge Plan Discharge Patient Disposition: Home Clinical Impression: Vomiting, Chest pain, Hypertension Condition: Stable Prescriptions: New ondansetron 4 mg tablet,disintegrating 4 mg PO Q6H PRN (Reason: nausea and vomiting) Qty: 14 0RF Norvasc 5 mg tablet 5 mg PO DAILY Qty: 30 0RF No Action ketorolac 10 mg tablet 10 mg PO QID PRN (Reason: pain) 5 Days Qty: 20 0RF fluticasone furoate-vilanterol [Breo Ellipta] 200-25 mcg/dose blister with device 1 inh inhalation DAILY ferrous sulfate [Iron (ferrous sulfate)] 325 mg PO 2XD lidocaine 5 % cream 1 applic topical BID PRN (Reason: pain) Qty: 30 0RF norethindrone (contraceptive) 0.35 mg tablet 0.35 mg PO . DIRECTED montelukast 10 mg Tablet 10 mg PO QPM Qty: 30 0RF albuterol sulfate 2.5 mg /3 mL (0.083 %) solution for nebulization 2.5 mg inhalation Q6H PRN (Reason: Shortness Of Breath) Qty: 180 0RF Rx Instructions: pts states the pt used this medication last night cetirizine [Zyrtec] 10 mg Tablet 10 mg PO DAILY PRN (Reason: Allergy Symptoms) Qty: 30 0RF albuterol sulfate [ProAir HFA] 90 mcg/actuation Hfa Aerosol Inhaler 2 puff INHALATION Q4H PRN (Reason: Shortness Of Breath) Qty: 1 0RF tramadol 50 mg tablet 50 mg PO Q8H PRN (Reason: pain) Qty: 10 0RF fluoxetine 20 mg tablet 20 mg PO 1XD hydrocodone-acetaminophen 5-325 mg tablet 1 tab PO Q6H PRN (Reason: pain) Qty: 28 0RF Reglan 10 mg tablet 10 mg PO Q6H PRN (Reason: nausea and vomiting) Qty: 20 0RF azithromycin 500 mg tablet 500 mg PO DAILY 5 Days Qty: 5 0RF Discharge Orders: Discharge ED (Routine); Ordered 11/16/22 Ordered By: Renato Horowitz Referrals: Ele Santos FNP [Primary Care Provider] - 1-3 days Discharge Diet: Advance as tolerated Discharge Activity: Resume usual activity Patient Instructions: Chest Pain (ED), Acute Nausea and Vomiting (ED) Coding Level of Care Code ED Software Computer Specialist for Al Fwd Exam Comprehensive
[2022-11-16] MEDS: metoclopramide 5 mg/mL SDV 2 mL 10 MG IVP (15:31)
[2022-11-16] MEDS: diphenhydrAMINE 50 mg/mL SDV 1mL IVP (15:31)
[2022-11-16] MEDS: sodium chloride 0.9% 1,000 ML 999 ML IV (15:31)
[2022-11-16 15:34] VITALS: BP 184/100; PULSE 78; RESP 14; O2SAT 100
--- NOTE | 2022-11-16 15:36 | PC.NURSE ---
PT PLACED ON CONTINUOUS NIBP, SPO2, AND CM
[2022-11-16 15:50] LABS: Basophils # 0.1 10^3/uL (0.0-0.1); Basophils % 0.6 %; Eosinophils % 0.2 %; Hematocrit 41.7 % (37.0-47.0); Hemoglobin 12.8 g/dL (11.5-15.3); Lymphocytes # 1.1 10^3/uL (0.8-4.8); Lymphocytes % 11.2 %; Mean Corpuscular HGB Conc 30.7 g/dL (30.0-36.0); Mean Corpuscular Hemoglobin 23.6 pg (28.0-34.0); Mean Corpuscular Volume 76.9 fl (81-99); Mean Platelet Volume 9.4 fL (7.4-10.4); Monocytes # 0.3 10^3/uL (0.2-0.9); Monocytes % 3.3 %; Neutrophils # 8.38 10^3/uL (1.8-7.7); Neutrophils % 84.2 %; Nucleated Red Blood Cells % 0 %; Platelet Count 327 10^3/cmm (130-400); Red Blood Count 5.42 10^6/uL (4.1-5.3); Red Cell Distribution Width 24.9 % (12.1-15.1)
[2022-11-16 16:14] LABS: Alanine Aminotransferase 14 U/L (0-33); Albumin Level 4.2 g/dL (3.5-5.2); Alkaline Phosphatase 60 U/L (35-105); Anion Gap 19.7 (5-19); Aspartate Amino Transferase 16 U/L (0-32); Blood Urea Nitrogen 15 mg/dL (6-20); Calcium 8.8 mg/dL (8.5-10.5); Carbon Dioxide 19 mmol/L (22-29); Chloride 103 mmol/L (98-107); Globulin 3.9 g/dL (1.3-4.6); Glomerular Filtration Rate 111.3 mL/min (90-130); Glucose 146 mg/dL (65-115); Lipase 17 U/L (13-60); Osmolality Calculated 289 mOsm/kg (285-295); Potassium 3.7 mmol/L (3.5-5.1); Sodium 138 mmol/L (136-145); Total Bilirubin 0.4 mg/dL (0.15-1.2); Total Protein 8.1 g/dL (6.6-8.7); Troponin(5th) Baseline 6 ng/L (0-10)
[2022-11-16 16:18] LABS: Influenza A by IFA negative (Negative); Influenza B by IFA negative (Negative)
[2022-11-16 16:19] LABS: SARS Covid-2 Antigen negative (Negative)
[2022-11-16 16:26] VITALS: BP 170/111; PULSE 63; RESP 17; O2SAT 100
[2022-11-16 16:30] VITALS: BP 183/109; PULSE 63; RESP 18; O2SAT 98
--- NOTE | 2022-11-16 16:50 | ECG_ITS ---
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 Measurements Intervals [place] Rate: 55 P: 37 VT: 177 QRS: 54 QRSD: 87 T: 50 QT: 464 QTc: 445 Interpretive Statements SINUS BRADYCARDIA Compared to ECG 11/16/2022 15:06:27 Sinus arrhythmia no longer present Electronically Signed On 11-17-2022 11:33:27 BUSINESS SUPPORT ASSOCIATE by Rasheed Martinez M.D. [id number]
[2022-11-16 17:14] LABS: HCG, Serum Qual Negative (Negative)
[2022-11-16 17:30] VITALS: BP 179/96; PULSE 55; RESP 19; O2SAT 97
[2022-11-16 17:35] LABS: Specific Gravity, Urine 1.015 (1.005-1.030); Urine Appearance Cloudy (CLEAR); Urine Color Straw (Yellow); pH Urine 6.5 (5-7)
[2022-11-16 17:36] LABS: Add Urine Microscopic? YES; Bilirubin Urine Neg (Negative); Blood Urine 3+ (Negative); Glucose Urine UA Norm (Normal); Ketones Urine 1+ (Negative); Leukocyte Esterase Urine Negative (Negative); Nitrate Urine Negative (Negative); Protein Urine Neg (Negative); Urobilinogen Urine Norm (Negative)
[2022-11-16 17:37] LABS: Bacteria Urine TRACE /hpf; Mucus Urine TRACE /hpf; RBC Urine 80-100 /hpf (0-2); Squamous Epithelial Cell Urine 0-4 /hpf (0-5); WBC Urine 0-4 /hpf (0-5)
[2022-11-16 17:38] LABS: Add Urine Culture? Yes
[2022-11-16] MEDS: hyDRALAzine 20 mg/mL INJ 1 mL 10 MG IVP (17:50)
[2022-11-16] MEDS: sodium chloride 0.9% 500 ML 999 ML IV (17:51)
[2022-11-16 18:00] VITALS: BP 160/93; PULSE 67; RESP 19; O2SAT 100
[2022-11-16 18:25] LABS: Troponin 5 2HR Delta 0 ABS# (0-10)
[2022-11-16] MEDS: ondansetron 2 mg/ML SDV 2 mL 4 MG IVP (18:39)
== END 2022-11-16 18:39 | disposition home or self-care (01) ==
PROVIDERS: Emergency Provider Emergency Medicine; PCP Nurse Practitioner Family
DX: R11.11 Vomiting without nausea (principal); R07.9 Chest pain, unspecified; I10 Essential (primary) hypertension; Z20.822 Contact with and (suspected) exposure to COVID-19; Z87.891 Personal history of nicotine dependence
CPT/HCPCS: 36415; 71045; 80053; 81001; 83690; 84484; 84703; 85025; 87086; 87426; 87804; 93005; 96361; 96374; 96375; 99285; J0360; J1200; J2405; J2765; J7030; J7040

== ENCOUNTER 2022-11-18 09:45 | Emergency (ER) | payer BC, MEDICAID, SELFPAY ==
[2022-11-18 10:00] VITALS: BP 190/69; PULSE 69; RESP 20; TEMP 36.4; O2SAT 100
--- NOTE | 2022-11-18 11:09 | W.ED.NAVMDI ---
HPI - Nausea/Vomiting/Diarrhea General: Chief complaint: Nausea/Vomiting/Diarrhea Stated complaint: N/V/D Time Seen by Provider: 11/18/22 11:09 History of Present Illness: Ms. Ross is a 37-year-old lady presenting to the emergency department due to nausea and vomiting. She reports onset of symptoms 3 days ago and subacute in onset. Since that time aside multiple episodes of nonbilious and nonbloody emesis as well as inability to keep any p.o. intake down. Also notes flushed feeling and generalized malaise. Denies fevers or respiratory symptoms. Was seen on 11/16 and noted to have high blood pressure and reports prescriptions at home for nausea have not helped. Overall course of symptoms has worsened. Intensity is moderate to severe. No other specific changes in health, exacerbating, or alleviating factors identified. Onset (ago): day(s) Description of vomiting: watery Description of diarrhea: watery Associated nausea: Yes Associated abdominal pain: Yes Location of pain: Diffuse Pain consistency: constant Severity: mild Exacerbating factors: eating Relieving factors: none Associated symtoms: Reports nausea Review of Systems General: Reports: 10 or more systems reviewed and unremarkable except in HPI and below GI: Reports: nausea PFSH ED PFSH: Medical History (Updated 11/29/22 @ 00:01 by EZRA Desai) Acute hypoxemic respiratory failure Asthma Bleeding hemorrhoids Hypertension Microcytic anemia Tobacco dependency Surgical History (Updated 11/21/22 @ 10:34 by JESUS Peña) H/O partial thyroidectomy History of laparoscopic cholecystectomy Social History Smoking and tobacco status: former smoker Alcohol intake: current Alcohol intake frequency: 3 or more drinks per day Alcohol type: beer Lives independently: Yes Household members: spouse and children Marital status: Physical Exam Const: COMMON NORMALS: alert GENERAL APPEARANCE: cooperative and well developed HENMT: COMMON NORMALS: normocephalic and atraumatic HEAD & SCALP: normocephalic and atraumatic Eye: COMMON NORMALS: conjunctivae normal CONJUNCTIVA: Yes conjunctivae normal SCLERA: sclerae normal Neck/C-Spine: COMMON NORMALS: supple GENERAL: Yes trachea midline Resp: COMMON NORMALS: clear to auscultation bilaterally EFFORT & INSPECTION: Yes able to speak in complete sentences and Yes tachypneic AUSCULTATION: clear to auscultation bilaterally Cardio: COMMON NORMALS: regular rate and regular rhythm RATE: regular rate RHYTHM: regular rhythm GI: COMMON NORMALS: Soft to palpation PALPATION: Yes Soft to palpation, Yes Tenderness to palpation present (GI), No Guarding due to palpation present (GI) and No Rigid due to palpation Extremity: GENERAL: Yes normal exam except as noted and No edema Neuro: COMMON NORMALS: moves all extremities SENSORIUM/ORIENTATION: Yes alert and No Orientation impaired Psych: COMMON NORMALS: mental status grossly normal and Normal thought process present MOOD & AFFECT: Yes anxious THOUGHT PROCESS: Normal thought process present Course Vital Signs: Vital signs: Vital Signs Temperature 97.5 F L 11/18/22 10:00 Pulse Rate 76 11/18/22 13:34 Respiratory Rate 16 11/18/22 13:34 Blood Pressure 170/94 11/18/22 13:34 Pulse Oximetry 99 11/18/22 13:34 Oxygen Delivery Me thod 11/18/22 10:00 MDM - Nausea/Vomiting/Diarrhea Medical Decision Making 37-year-old lady presenting with nausea, vomiting, diarrhea. Exam as above. Patient is nontoxic. Labs notable for no leukocytosis, normal hemoglobin and platelet count. Metabolic panel with mild evidence of dehydration. Hematuria without evidence of UTI. CT imaging notable for mild thickening along the terminal ileum retroverted to mild enteritis. Patient proved with IV fluids and antiemetic, medication for blood pressure given. Patient able to tolerate p.o. intake. Most likely etiology of patient's symptoms is enteritis and hypertension. The results of ED evaluation were discussed with the patient including prescriptions and/or symptomatic cares (if applicable) including appropriate and responsible use, followup plan, and return precautions. The patient verbalized understanding and felt safe for discharge. Medical Records I reviewed the patient's medical records. Lab Data I reviewed the patient's lab results. 11/18/22 11:23 11/18/22 11:23 Radiology Impressions Abdomen/Pelvis CT 11/18/22 11:23 IMPRESSION: 1. No renal obstruction or calcifications. 2. No perinephric stranding. 3. No appendicitis. 4. Mild thickening involving the terminal ilium without adjacent inflammation. May be due to very mild anterior enteritis. 5. Prior cholecystectomy. Laboratory Results WBC 8.0 10^3/uL (4.0-10.0) 11/18/22 11:23 RBC 5.78 10^6/uL (4.1-5.3) H 11/18/22 11:23 Hgb 13.9 g/dL (11.5-15.3) 11/18/22 11:23 Hct 44.1 % (37.0-47.0) 11/18/22 11:23 MCV 76.3 fl (81-99) L 11/18/22 11:23 MCH 24.0 pg (28.0-34.0) L 11/18/22 11:23 MCHC 31.5 g/dL (30.0-36.0) 11/18/22 11:23 RDW 24.3 % (12.1-15.1) H 11/18/22 11:23 Plt Count 330 10^3/cmm (130-400) 11/18/22 11:23 MPV 9.2 fL (7.4-10.4) 11/18/22 11:23 Neut % (Auto) 77.4 % 11/18/22 11:23 Lymph % (Auto) 13.6 % 11/18/22 11:23 [place] % (Auto) 8.2 % 11/18/22 11:23 Eos % (Auto) 0.1 % 11/18/22 11:23 Baso % (Auto) 0.5 % 11/18/22 11:23 Neut # (Auto) 6.22 10^3/uL (1.8-7.7) 11/18/22 11:23 Lymph # (Auto) 1.1 10^3/uL (0.8-4.8) 11/18/22 11:23 [place] # (Auto) 0.7 10^3/uL (0.2-0.9) 11/18/22 11:23 Eos # (Auto) 0.0 10^3/uL (0.0-0.8) 11/18/22 11:23 Baso # (Auto) 0.0 10^3/uL (0.0-0.1) 11/18/22 11:23 Nucleated RBC % (auto) 0 % 11/18/22 11:23 Nucleated RBCs # 0.0 /100WBC 11/18/22 11:23 Sodium 133 mmol/L (136-145) L 11/18/22 11:23 Potassium 3.5 mmol/L (3.5-5.1) 11/18/22 11:23 Chloride 95 mmol/L (98-107) L 11/18/22 11:23 Carbon Dioxide 23 mmol/L (22-29) 11/18/22 11:23 Anion Gap 18.5 (5-19) 11/18/22 11:23 BUN 11 mg/dL (6-20) 11/18/22 11:23 Creatinine 0.6 mg/dL (0.5-0.9) 11/18/22 11:23 GFR Calculation 111.3 mL/min (90-130) 11/18/22 11: Glucose 110 mg/dL (65-115) 11/18/22 11: Calculated Osmolality 276 mOsm/kg (285-295) L 11/18/22 11:23 Calcium 9.5 mg/dL (8.5-10.5) 11/18/22 11:23 Total Bilirubin 0.7 mg/dL (0.15-1.2) 11/18/22 11:23 AST 31 U/L (0-32) 11/18/22 11:23 ALT 27 U/L (0-33) 11/18/22 11:23 Alkaline Phosphatase 62 U/L (35-105) 11/18/22 11: Total Protein 8.4 g/dL (6.6-8.7) 11/18/22 11:23 Albumin 4.6 g/dL (3.5-5.2) 11/18/22 11:23 Globulin 3.8 g/dL (1.3-4.6) 11/18/22 11:23 Lipase 41 U/L (13-60) 11/18/22 11:23 Urine Color Straw (Yellow) 11/18/22 12:45 Urine Appearance Sl hazy (CLEAR) A 11/18/22 12:45 Urine pH 7 (5-7) 11/18/22 12:45 Ur Specific [place] 1.005 (1.005-1.030) 11/18/22 12:45 Urine Protein Neg (Negative) 11/18/22 12:45 Urine Glucose (UA) Norm (Normal) 11/18/22 12:45 Urine Ketones 1+ (Negative) H 11/18/22 12:45 Urine Blood 3+ (Negative) H 11/18/22 12:45 Urine Nitrate Negative (Negative) 11/18/22 12:45 Urine Bilirubin Neg (Negative) 11/18/22 12:45 Urine Urobilinogen Norm mg/dL (Negative) 11/18/22 12:45 Ur Leukocyte Esterase Negative (Negative) 11/18/22 12:45 Urine RBC Rare /hpf (0-2) 11/18/22 12:45 Urine WBC None /hpf (0-5) 11/18/22 12:45 Ur Squamous Epith Cells None /hpf (0-5) 11/18/22 12:45 Amorphous Sediment Not Reportable 11/18/22 12:45 Urine Bacteria Trace /hpf (NONE) 11/18/22 12:45 Discharge Plan Discharge Patient Disposition: Home Clinical Impression: Nausea, vomiting, and diarrhea, Dehydration, Abdominal pain, Enteritis Condition: Stable Prescriptions: New metoclopramide HCl [Reglan] 10 mg tablet 10 mg PO Q6H PRN (Reason: nausea and vomiting) Qty: 20 0RF No Action montelukast 10 mg Tablet 10 mg PO QPM Qty: 30 0RF albuterol sulfate 2.5 mg /3 mL (0.083 %) solution for nebulization 2.5 mg inhalation Q6H PRN (Reason: Shortness Of Breath) Qty: 180 0RF albuterol sulfate [ProAir HFA] 90 mcg/actuation Hfa Aerosol Inhaler 2 puff INHALATION Q4H PRN (Reason: Shortness Of Breath) Qty: 1 0RF amlodipine [Norvasc] 5 mg tablet 5 mg PO DAILY Qty: 30 0RF ferrous sulfate 325 mg (65 mg iron) Tablet 325 mg PO BID Estarylla 0.25-35 mg-mcg Tablet 1 tab PO DAILY Symbicort 80-4.5 mcg/actuation HFA aerosol inhaler 2 puff INHALATION BID promethazine 25 mg tablet 25 mg PO TID PRN (Reason: nausea and vomiting) Qty: 20 0RF Discharge Orders: Discharge ED (Routine); Ordered 11/18/22 Ordered By: Gio Small Referrals: Ele Santos FNP [Primary Care Provider] - Discharge Diet: Advance as tolerated and Clear Liquid Discharge Activity: Increase activity as tolerated Patient Instructions: Dehydration (ED), Abdominal Pain (ED), Enteritis (ED) Activity Restrictions/Additional Instructions: Thank you for visiting the emergency department. You were seen and evaluated for abdominal pain with persistent nausea, vomiting, diarrhea. The most likely cause of your symptoms is enteritis which given clinical history of worsening of symptoms may be bacterial in nature. I will prescribe antibiotics as well as a different antinausea medication. You may take this antinausea medication with Benadryl. You may use [id number] medications such as acetaminophen and ibuprofen for pain however please do not exceed the daily recommended dosage as listed on the packaging and please keep in mind that many namebrand medications contain the same active ingredients. Please avoid these medications if previously instructed to do so by another physician due to other underlying medical condition. Return to the emergency department for uncontrolled symptoms or anything else that you are concerned about and feel needs emergency department evaluation. Coding Level of Care Code ED Stripping [employer] for [place] [employer]
--- NOTE | 2022-11-18 11:23 | CT_ITS ---
WS: [id number] CT ABDOMEN AND PELVIS WITH CONTRAST HISTORY: intractable n/v TECHNIQUE: Imaging performed of the abdomen and pelvis with IV contrast. Single phase imaging of the abdomen. Coronal and sagittal reformats are submitted. All CT scans at [facility] use at [address] one of these dose optimization techniques: automated exposure control; mA and/or kV adjustment per patient size (includes targeted exams where dose is matched to clinical indication); or iterative re construction. IV CONTRAST: Omnipaque 350; 95 mL IV. Oral contrast: No DLP: 783.78 mGy.cm COMPARISON: None available. Lower thorax: Lung bases are clear. Heart is normal size. No hiatal hernia. Liver/biliary system: Normal size with no intrahepatic dilatation. Gallbladder: Status post cholecystectomy. Pancreas: Normal size pancreas and pancreatic duct. No adjacent inflammation. Spleen: Normal size spleen. No mass or infarct. Adrenal glands: Normal. Right kidney: Normal. Left kidney: Normal. Aorta: Normal. Lymphadenopathy: Small benign-appearing lymph node at the RIGHT inguinal region. Free fluid: None. GI tract: Nondistended stomach. No small bowel obstruction. There is mild wall thickening and narrowi ng of the lumen involving the terminal ilium. No adjacent inflammation. Negative for appendicitis. No colon obstruction. Abdominal wall: Unremarkable abdominal wall. No hernia. Pelvis: No free fluid or adenopathy within the pelvis. Bones: Unremarkable. CT/CT abdomen pelvis w con* [id number] IMPRESSION: 1. No renal obstruction or calcifications. 2. No perinephric stranding. 3. No appendicitis. 4. Mild thickening involving the terminal ilium without adjacent inflammation. May be due to very mild anterior enteritis. 5. Prior cholecystectomy.
[2022-11-18 11:31] LABS: Basophils % 0.5 %; Eosinophils % 0.1 %; Hematocrit 44.1 % (37.0-47.0); Hemoglobin 13.9 g/dL (11.5-15.3); Lymphocytes # 1.1 10^3/uL (0.8-4.8); Lymphocytes % 13.6 %; Mean Corpuscular HGB Conc 31.5 g/dL (30.0-36.0); Mean Corpuscular Volume 76.3 fl (81-99); Mean Platelet Volume 9.2 fL (7.4-10.4); Monocytes # 0.7 10^3/uL (0.2-0.9); Monocytes % 8.2 %; Neutrophils # 6.22 10^3/uL (1.8-7.7); Neutrophils % 77.4 %; Nucleated Red Blood Cells % 0 %; Platelet Count 330 10^3/cmm (130-400); Red Blood Count 5.78 10^6/uL (4.1-5.3); Red Cell Distribution Width 24.3 % (12.1-15.1)
[2022-11-18] MEDS: diphenhydrAMINE 50 mg/mL SDV 1mL 25 MG IVP (11:36)
[2022-11-18] MEDS: metoclopramide 5 mg/mL SDV 2 mL 10 MG IVP (11:36)
[2022-11-18] MEDS: sodium chloride 0.9% 1,000 ML 999 ML IV (11:36)
[2022-11-18 11:51] LABS: Alanine Aminotransferase 27 U/L (0-33); Albumin Level 4.6 g/dL (3.5-5.2); Alkaline Phosphatase 62 U/L (35-105); Blood Urea Nitrogen 11 mg/dL (6-20); Calcium 9.5 mg/dL (8.5-10.5); Carbon Dioxide 23 mmol/L (22-29); Chloride 95 mmol/L (98-107); Globulin 3.8 g/dL (1.3-4.6); Glomerular Filtration Rate 111.3 mL/min (90-130); Glucose 110 mg/dL (65-115); Lipase 41 U/L (13-60); Osmolality Calculated 276 mOsm/kg (285-295); Sodium 133 mmol/L (136-145); Total Bilirubin 0.7 mg/dL (0.15-1.2); Total Protein 8.4 g/dL (6.6-8.7)
[2022-11-18 11:52] LABS: Anion Gap 18.5 (5-19); Aspartate Amino Transferase 31 U/L (0-32); Potassium 3.5 mmol/L (3.5-5.1)
[2022-11-18 13:11] VITALS: BP 139/91; PULSE 82; RESP 16; O2SAT 99
[2022-11-18 13:19] LABS: Bilirubin Urine Neg (Negative); Glucose Urine UA Norm (Normal); Ketones Urine 1+ (Negative); Nitrate Urine Negative (Negative); Protein Urine Neg (Negative); Specific Gravity, Urine 1.005 (1.005-1.030); Urine Appearance SL Hazy (CLEAR); Urine Color Straw (Yellow); Urobilinogen Urine Norm (Negative); pH Urine 7 (5-7)
[2022-11-18 13:20] LABS: Add Urine Culture? No; Add Urine Microscopic? YES; Bacteria Urine TRACE /hpf; Blood Urine 3+ (Negative); Leukocyte Esterase Urine Negative (Negative); RBC Urine RARE /hpf (0-2)
[2022-11-18 13:34] VITALS: BP 170/94; PULSE 76; RESP 16; O2SAT 99
== END 2022-11-18 13:36 | disposition home or self-care (01) ==
PROVIDERS: Emergency Provider Emergency Medicine; PCP Nurse Practitioner Family
DX: K52.9 Noninfective gastroenteritis and colitis, unspecified (principal); E86.0 Dehydration; I10 Essential (primary) hypertension; Z87.891 Personal history of nicotine dependence
CPT/HCPCS: 74177; 80053; 81001; 83690; 85025; 96361; 96374; 96375; 99285; J1200; J2765; J7030; Q9967

== ENCOUNTER 2022-11-21 09:05 | Emergency (ER) | payer BC, MEDICAID, SELFPAY ==
[2022-11-21 09:22] VITALS: BP 153/107; PULSE 108; RESP 19; TEMP 36.4; O2SAT 98; BMI 34.0
--- NOTE | 2022-11-21 09:48 | ED_ITS ---
Documented by User: JESUS Peña 11/21/22 18:21 HPI - Nausea/Vomiting/Diarrhea General: Chief complaint: Nausea/Vomiting/Diarrhea Stated complaint: n/v Time Seen by Provider: 11/21/22 09:11 History of Present Illness: Patient has a 37-year-old female who comes to the ED with nausea and vomiting. Patient was seen here in the ED for same complaints back on November 16 and November 18. She has been taking all her prescribed medications and she still having nausea and vomiting. She is unable to keep any food or fluids down. Patient endorses having a fever last night. Denies any abdominal pain. Denies any blood in the emesis. Associated nausea: Yes Associated symtoms: Reports nausea; Denies change in vision, chest pain, dysuria, fatigue, headache(s) or palpitations Review of Systems Const: Denies: fever(s), chills or fatigue Eyes: Denies: change in vision or eye discomfort ENMT: Denies: throat pain, odynophagia, nasal discharge or nasal congestion Card: Denies: chest pain, palpitations, edema, swelling of feet/ankles, dyspnea on exertion or orthopnea Resp: Denies: dyspnea, productive cough or non-productive cough GI: Reports: nausea and vomiting; Denies: abdominal pain, diarrhea, constipation or hematochezia : Denies: flank pain, dysuria or hematuria Musc: Denies: neck pain, back pain or extremity swelling Skin/Breast: Denies: rash or new lesions Neuro: Denies: headache(s), numbness in extremities or weakness in extremities [facility] ED PFSH: Medical History (Updated 11/21/22 @ 18:20 by JESUS Peña) Acute hypoxemic respiratory failure Asthma Bleeding hemorrhoids Hypertension Microcytic anemia Tobacco dependency Surgical History (Updated 11/21/22 @ 10:34 by JESUS Peña) H/O partial thyroidectomy History of laparoscopic cholecystectomy Social History Smoking and tobacco status: former smoker Alcohol intake: current Alcohol intake frequency: 3 or more drinks per day Alcohol type: beer Lives independently: Yes Household members: spouse and children Marital status: Physical Exam Const: COMMON NORMALS: patient oriented x3 and alert GENERAL APPEARANCE: cooperative HENMT: COMMON NORMALS: normocephalic HEAD & SCALP: normocephalic MOUTH: Normal oral and palatal mucosa present THROAT: posterior oropharynx normal and uvula midline Neck/C-Spine: COMMON NORMALS: supple GENERAL: Yes normal visual inspection Resp: COMMON NORMALS: normal respiratory effort, No retractions, No use of accessory muscles and clear to auscultation bilaterally AUSCULTATION: clear to auscultation bilaterally Cardio: COMMON NORMALS: regular rate, regular rhythm, S1 normal heart sound present, S2 normal heart sound present, No gallops present (Cardio), No clicks present (Cardio), No murmurs present (Cardio) and Peripheral pulses 2+ throughout RATE: regular rate RHYTHM: regular rhythm HEART SOUNDS: S1 normal heart sound present and S2 normal heart sound present PERIPHERAL PULSES: Peripheral pulses 2+ throughout GI: COMMON NORMALS: Normal to inspection, nondistended, normoactive bowel sounds present, Soft to palpation, non-tender and no masses PALPATION: Yes Soft to palpation OTHER: No abdominal tenderness in all 4 quadrants. : COMMON NORMALS: Yes no CVA tenderness BLADDER/KIDNEY EXAM: Yes no CVA tenderness Back/Pelvis: COMMON NORMALS: no CVA tenderness Extremity: COMMON NORMALS: normal to inspection Neuro: COMMON NORMALS: patient oriented x3 SENSORIUM/ORIENTATION: Yes alert GAIT: Yes Normal gait present Skin: GENERAL SKIN EXAM: dry skin Course Vital Signs: Vital signs: Vital Signs Temperature 97.5 F L 11/21/22 09:22 Pulse Rate 124 H 11/21/22 12:06 Respiratory Rate 18 11/21/22 12:06 Blood Pressure 146/98 11/21/22 12:06 Pulse Oximetry 99 11/21/22 12:06 Oxygen Delivery Me thod 11/21/22 12:06 MDM - Nausea/Vomiting/Diarrhea Medical Decision Making Patient has a 37-year-old female who comes to the ED with nausea and vomiting. Patient was seen here in the ED for same complaints back on November 16 and November 18. She has been taking all her prescribed medications and she still having nausea and vomiting. She is unable to keep any food or fluids down. Patient endorses having a fever last night. Denies any abdominal pain. Denies any blood in the emesis. Vitals are stable. Exam of patient is benign. She has no abdominal tenderness upon palpation. White blood cell count of 12 potassium 3.1 but the rest of CBC, UA and CMP were unremarkable. Patient was given a liter of IV fluids, nausea meds and p.o. potassium. She was feeling a lot better and able to tolerate p.o. fluids. She was diagnosed with nausea and vomiting and hypokalemia. She was told to follow-up with her PCP in the next week for reevaluation. She was sent home with a prescription for some Phenergan to help with nausea. Patient understood and agreed with plan. Lab Data I reviewed the patient's lab results. 11/21/22 09:47 11/21/22 09:47 Laboratory Results WBC 12.1 10^3/uL (4.0-10.0) H 11/21/22 09:47 RBC 6.49 10^6/uL (4.1-5.3) H 11/21/22 09:47 Hgb 15.8 g/dL (11.5-15.3) H 11/21/22 09:47 Hct 47.8 % (37.0-47.0) H 11/21/22 09:47 MCV 73.7 fl (81-99) L 11/21/22 09:47 MCH 24.3 pg (28.0-34.0) L 11/21/22 09:47 MCHC 33.1 g/dL (30.0-36.0) 11/21/22 09:47 RDW TNP 11/21/22 09:47 Plt Count 396 10^3/cmm (130-400) 11/21/22 09:47 MPV 9.0 fL (7.4-10.4) 11/21/22 09:47 Neut % (Auto) 77.7 % 11/21/22 09:47 Lymph % (Auto) 12.7 % 11/21/22 09:47 [place] % (Auto) 7.9 % 11/21/22 09:47 Eos % (Auto) 0.7 % 11/21/22 09:47 Baso % (Auto) 0.6 % 11/21/22 09:47 Neut # (Auto) 9.37 10^3/uL (1.8-7.7) H 11/21/22 09:47 Lymph # (Auto) 1.5 10^3/uL (0.8-4.8) 11/21/22 09:47 [place] # (Auto) 1.0 10^3/uL (0.2-0.9) H 11/21/22 09:47 Eos # (Auto) 0.1 10^3/uL (0.0-0.8) 11/21/22 09:47 Baso # (Auto) 0.1 10^3/uL (0.0-0.1) 11/21/22 09:47 Nucleated RBC % (auto) 0 % 11/21/22 09:47 Nucleated RBCs # 0.0 /100WBC 11/21/22 09:47 Giant Platelets Trace 11/21/22 09:47 Dimorphic RBCs 2+ H 11/21/22 09:47 Hypochromasia 2+ H 11/21/22 09:47 Poikilocytosis 2+ H 11/21/22 09:47 Anisocytosis 2+ H 11/21/22 09:47 Sodium 132 mmol/L (136-145) L 11/21/22 09:47 Potassium 3.1 mmol/L (3.5-5.1) L 11/21/22 09:47 Chloride 90 mmol/L (98-107) L 11/21/22 09:47 Carbon Dioxide 21 mmol/L (22-29) L 11/21/22 09:47 Anion Gap 24.1 (5-19) H 11/21/22 09:47 BUN 18 mg/dL (6-20) 11/21/22 09:47 Creatinine 0.8 mg/dL (0.5-0.9) 11/21/22 09:47 GFR Calculation 79.9 mL/min (90-130) L 11/21/22 09:47 Glucose 97 mg/dL (65-115) 11/21/22 09:47 Calculated Osmolality 276 mOsm/kg (285-295) L 11/21/22 09:47 Calcium 10.2 mg/dL (8.5-10.5) 11/21/22 09:47 Total Bilirubin 0.6 mg/dL (0.15-1.2) 11/21/22 09:47 AST 22 U/L (0-32) 11/21/22 09:47 ALT 26 U/L (0-33) 11/21/22 09:47 Alkaline Phosphatase 70 U/L (35-105) 11/21/22 09:47 Total Protein 8.2 g/dL (6.6-8.7) 11/21/22 09:47 Albumin 4.5 g/dL (3.5-5.2) 11/21/22 09:47 Globulin 3.7 g/dL (1.3-4.6) 11/21/22 09:47 Lipase 58 U/L (13-60) 11/21/22 09:47 HCG, Qual Negative (Negative) 11/21/22 09:47 Urine Color Yellow (Yellow) 11/21/22 09:56 Urine Appearance Hazy (CLEAR) A 11/21/22 09:56 Urine pH 6 (5-7) 11/21/22 09:56 Ur Specific [place] 1.025 (1.005-1.030) 11/21/22 09:56 Urine Protein 2+ (Negative) H 11/21/22 09:56 Urine Glucose (UA) Norm (Normal) 11/21/22 09:56 Urine Ketones 3+ (Negative) H 11/21/22 09:56 Urine Blood 2+ (Negative) H 11/21/22 09:56 Urine Nitrate Negative (Negative) 11/21/22 09:56 Urine Bilirubin 1+ (Negative) H 11/21/22 09:56 Urine Urobilinogen Neg mg/dL (Negative) 11/21/22 09:56 Ur Leukocyte Esterase Negative (Negative) 11/21/22 09:56 Urine RBC 0-4 /hpf (0-2) H 11/21/22 09:56 Urine WBC Rare /hpf (0-5) 11/21/22 09:56 Ur Squamous Epith Cells 0-4 /hpf (0-5) H 11/21/22 09:56 Amorphous Sediment 2+ /hpf 11/21/22 09:56 Urine Bacteria None /hpf (NONE) 11/21/22 09:56 Urine Mucus 3+ /hpf 11/21/22 09:56 Discharge Plan Discharge Patient Disposition: Home Clinical Impression: Hypokalemia Nausea and vomiting Qualifiers: Vomiting type: unspecified Qualified Code(s): R11.2 - Nausea with vomiting, unspecified Condition: Stable Prescriptions: New promethazine 25 mg tablet 25 mg PO TID PRN (Reason: nausea and vomiting) Qty: 20 0RF No Action montelukast 10 mg Tablet 10 mg PO QPM Qty: 30 0RF albuterol sulfate 2.5 mg /3 mL (0.083 %) solution for nebulization 2.5 mg inhalation Q6H PRN (Reason: Shortness Of Breath) Qty: 180 0RF albuterol sulfate [ProAir HFA] 90 mcg/actuation Hfa Aerosol Inhaler 2 puff INHALATION Q4H PRN (Reason: Shortness Of Breath) Qty: 1 0RF amlodipine [Norvasc] 5 mg tablet 5 mg PO DAILY Qty: 30 0RF ferrous sulfate 325 mg (65 mg iron) Tablet 325 mg PO BID Estarylla 0.25-35 mg-mcg Tablet 1 tab PO DAILY Symbicort 80-4.5 mcg/actuation HFA aerosol inhaler 2 puff INHALATION BID metoclopramide HCl [Reglan] 10 mg tablet 10 mg PO Q6H PRN (Reason: nausea and vomiting) Qty: 20 0RF azithromycin 500 mg tablet 500 mg PO DAILY 5 Days Qty: 5 0RF Discharge Orders: Discharge ED (Routine); Ordered 11/21/22 Ordered By: Juvencio Beyer Referrals: Ele Santos FNP [Primary Care Provider] - Discharge Diet: Advance as tolerated and Clear Liquid Discharge Activity: Increase activity as tolerated Patient Instructions: Acute Nausea and Vomiting (DC) Activity Restrictions/Additional Instructions: Follow-up with medical provider as directed in the next 5 to 7 days for reevaluation. Take medications as prescribed. Return to the ER or your medical provider if condition worsens. Please read and understand discharge instructions. Thank you for choosing [facility] for your healthcare needs today. Please realize this is an emergency room and that we are providing you with a medical screening exam and this may not be complete and all inclusive of all the testing and or work up that you may need to determine your ailment or severity of your illness. It is very important that you follow up as instructed or that you return to the Emergency Department should you have concerns or if your condition changes or worsens in any way. Coding Level of Care Code ED Block Chopper Hand for Chg Fwd Exam Comprehensive Documented by User: Felipe Artis DO 11/22/22 07:51 HPI - Nausea/Vomiting/Diarrhea General: Chief complaint: Nausea/Vomiting/Diarrhea Stated complaint: n/v Time Seen by Provider: 11/21/22 09:11 [facility] ED PFSH: Medical History (Updated 11/21/22 @ 18:20 by JESUS Peña) Acute hypoxemic respiratory failure Asthma Bleeding hemorrhoids Hypertension Microcytic anemia Tobacco dependency Surgical History (Updated 11/21/22 @ 10:34 by JESUS Peña) H/O partial thyroidectomy History of laparoscopic cholecystectomy Social History Smoking and tobacco status: former smoker Alcohol intake: current Alcohol intake frequency: 3 or more drinks per day Alcohol type: beer Lives independently: Yes Household members: spouse and children Marital status: Course Vital Signs: Vital signs: Vital Signs Temperature 97.5 F L 11/21/22 09:22 Pulse Rate 124 H 11/21/22 12:06 Respiratory Rate 18 11/21/22 12:06 Blood Pressure 146/98 11/21/22 12:06 Pulse Oximetry 99 11/21/22 12:06 Oxygen Delivery Me thod 11/21/22 12:06 MDM - Nausea/Vomiting/Diarrhea Medical Decision Making Patient has a 37-year-old female who comes to the ED with nausea and vomiting. Patient was seen here in the ED for same complaints back on November 16 and November 18. She has been taking all her prescribed medications and she still having nausea and vomiting. She is unable to keep any food or fluids down. Patient endorses having a fever last night. Denies any abdominal pain. Denies any blood in the emesis. Vitals are stable. Exam of patient is benign. She has no abdominal tenderness upon palpation. White blood cell count of 12 potassium 3.1 but the rest of CBC, UA and CMP were unremarkable. Patient was gi ga a liter of IV fluids, nausea meds and p.o. potassium. She was feeling a lot better and able to tolerate p.o. fluids. She was diagnosed with nausea and vomiting and hypokalemia. She was told to follow-up with her PCP in the next week for reevaluation. She was sent home with a prescription for some Phenergan to help with nausea. Patient understood and agreed with plan. Chart reviewed and patient discussed with midlevel. Agree with assessment and plan. Medical Records I reviewed the patient's medical records. Lab Data I reviewed the patient's lab results. 11/21/22 09:47 11/21/22 09:47 Laboratory Results WBC 12.1 10^3/uL (4.0-10.0) H 11/21/22 09:47 RBC 6.49 10^6/uL (4.1-5.3) H 11/21/22 09:47 Hgb 15.8 g/dL (11.5-15.3) H 11/21/22 09:47 Hct 47.8 % (37.0-47.0) H 11/21/22 09:47 MCV 73.7 fl (81-99) L 11/21/22 09:47 MCH 24.3 pg (28.0-34.0) L 11/21/22 09:47 MCHC 33.1 g/dL (30.0-36.0) 11/21/22 09:47 RDW TNP 11/21/22 09:47 Plt Count 396 10^3/cmm (130-400) 11/21/22 09:47 MPV 9.0 fL (7.4-10.4) 11/21/22 09:47 Neut % (Auto) 77.7 % 11/21/22 09:47 Lymph % (Auto) 12.7 % 11/21/22 09:47 [place] % (Auto) 7.9 % 11/21/22 09:47 Eos % (Auto) 0.7 % 11/21/22 09:47 Baso % (Auto) 0.6 % 11/21/22 09:47 Neut # (Auto) 9.37 10^3/uL (1.8-7.7) H 11/21/22 09:47 Lymph # (Auto) 1.5 10^3/uL (0.8-4.8) 11/21/22 09:47 [place] # (Auto) 1.0 10^3/uL (0.2-0.9) H 11/21/22 09:47 Eos # (Auto) 0.1 10^3/uL (0.0-0.8) 11/21/22 09:47 Baso # (Auto) 0.1 10^3/uL (0.0-0.1) 11/21/22 09:47 Nucleated RBC % (auto) 0 % 11/21/22 09:47 Nucleated RBCs # 0.0 /100WBC 11/21/22 09:47 Giant Platelets Trace 11/21/22 09:47 Dimorphic RBCs 2+ H 11/21/22 09:47 Hypochromasia 2+ H 11/21/22 09:47 Poikilocytosis 2+ H 11/21/22 09:47 Anisocytosis 2+ H 11/21/22 09:47 Sodium 132 mmol/L (136-145) L 11/21/22 09:47 Potassium 3.1 mmol/L (3.5-5.1) L 11/21/22 09:47 Chloride 90 mmol/L (98-107) L 11/21/22 09:47 Carbon Dioxide 21 mmol/L (22-29) L 11/21/22 09:47 Anion Gap 24.1 (5-19) H 11/21/22 09:47 BUN 18 mg/dL (6-20) 11/21/22 09:47 Creatinine 0.8 mg/dL (0.5-0.9) 11/21/22 09:47 GFR Calculation 79.9 mL/min (90-130) L 11/21/22 09:47 Glucose 97 mg/dL (65-115) 11/21/22 09:47 Calculated Osmolality 276 mOsm/kg (285-295) L 11/21/22 09:47 Calcium 10.2 mg/dL (8.5-10.5) 11/21/22 09:47 Total Bilirubin 0.6 mg/dL (0.15-1.2) 11/21/22 09:47 AST 22 U/L (0-32) 11/21/22 09:47 ALT 26 U/L (0-33) 11/21/22 09:47 Alkaline Phosphatase 70 U/L (35-105) 11/21/22 09:47 Total Protein 8.2 g/dL (6.6-8.7) 11/21/22 09:47 Albumin 4.5 g/dL (3.5-5.2) 11/21/22 09:47 Globulin 3.7 g/dL (1.3-4.6) 11/21/22 09:47 Lipase 58 U/L (13-60) 11/21/22 09:47 HCG, Qual Negative (Negative) 11/21/22 09:47 Urine Color Yellow (Yellow) 11/21/22 09:56 Urine Appearance Hazy (CLEAR) A 11/21/22 09:56 Urine pH 6 (5-7) 11/21/22 09:56 Ur Specific [place] 1.025 (1.005-1.030) 11/21/22 09:56 Urine Protein 2+ (Negative) H 11/21/22 09:56 Urine Glucose (UA) Norm (Normal) 11/21/22 09:56 Urine Ketones 3+ (Negative) H 11/21/22 09:56 Urine Blood 2+ (Negative) H 11/21/22 09:56 Urine Nitrate Negative (Negative) 11/21/22 09:56 Urine Bilirubin 1+ (Negative) H 11/21/22 09:56 Urine Urobilinogen Neg mg/dL (Negative) 11/21/22 09:56 Ur Leukocyte Esterase Negative (Negative) 11/21/22 09:56 Urine RBC 0-4 /hpf (0-2) H 11/21/22 09:56 Urine WBC Rare /hpf (0-5) 11/21/22 09:56 Ur Squamous Epith Cells 0-4 /hpf (0-5) H 11/21/22 09:56 Amorphous Sediment 2+ /hpf 11/21/22 09:56 Urine Bacteria None /hpf (NONE) 11/21/22 09:56 Urine Mucus 3+ /hpf 11/21/22 09:56 Discharge Plan Discharge Patient Disposition: Home Clinical Impression: Hypokalemia Nausea and vomiting Qualifiers: Vomiting type: unspecified Qualified Code(s): R11.2 - Nausea with vomiting, unspecified Condition: Stable Prescriptions: New promethazine 25 mg tablet 25 mg PO TID PRN (Reason: nausea and vomiting) Qty: 20 0RF No Action montelukast 10 mg Tablet 10 mg PO QPM Qty: 30 0RF albuterol sulfate 2.5 mg /3 mL (0.083 %) solution for nebulization 2.5 mg inhalation Q6H PRN (Reason: Shortness Of Breath) Qty: 180 0RF albuterol sulfate [ProAir HFA] 90 mcg/actuation Hfa Aerosol Inhaler 2 puff INHALATION Q4H PRN (Reason: Shortness Of Breath) Qty: 1 0RF amlodipine [Norvasc] 5 mg tablet 5 mg PO DAILY Qty: 30 0RF ferrous sulfate 325 mg (65 mg iron) Tablet 325 mg PO BID Estarylla 0.25-35 mg-mcg Tablet 1 tab PO DAILY Symbicort 80-4.5 mcg/actuation HFA aerosol inhaler 2 puff INHALATION BID metoclopramide HCl [Reglan] 10 mg tablet 10 mg PO Q6H PRN (Reason: nausea and vomiting) Qty: 20 0RF azithromycin 500 mg tablet 500 mg PO DAILY 5 Days Qty: 5 0RF Discharge Orders: Discharge ED (Routine); Ordered 11/21/22 Ordered By: Juvencio Beyer Referrals: Ele Santos FNP [Primary Care Provider] - Discharge Diet: Advance as tolerated and Clear Liquid Discharge Activity: Increase activity as tolerated Patient Instructions: Acute Nausea and Vomiting (DC) Activity Restrictions/Additional Instructions: Follow-up with medical provider as directed in the next 5 to 7 days for reevaluation. Take medications as prescribed. Return to the ER or your medical provider if condition worsens. Please read and understand discharge instructions. Thank you for choosing [facility] for your healthcare needs today. Please realize this is an emergency room and that we are providing you with a medical screening exam and this may not be complete and all inclusive of all the testing and or work up that you may need to determine your ailment or severity of your illness. It is very important that you follow up as instructed or that you return to the Emergency Department should you have concerns or if your condition changes or worsens in any way. Coding Level of Care Code ED Block Chopper Hand for [place] Exam Comprehensive
[2022-11-21 09:56] LABS: Basophils # 0.1 10^3/uL (0.0-0.1); Basophils % 0.6 %; Eosinophils # 0.1 10^3/uL (0.0-0.8); Eosinophils % 0.7 %; Hematocrit 47.8 % (37.0-47.0); Hemoglobin 15.8 g/dL (11.5-15.3); Lymphocytes # 1.5 10^3/uL (0.8-4.8); Lymphocytes % 12.7 %; Mean Corpuscular HGB Conc 33.1 g/dL (30.0-36.0); Mean Corpuscular Hemoglobin 24.3 pg (28.0-34.0); Mean Corpuscular Volume 73.7 fl (81-99); Monocytes % 7.9 %; Neutrophils # 9.37 10^3/uL (1.8-7.7); Neutrophils % 77.7 %; Nucleated Red Blood Cells % 0 %; Platelet Count 396 10^3/cmm (130-400); Red Blood Count 6.49 10^6/uL (4.1-5.3); White Blood Count 12.1 10^3/uL (4.0-10.0)
[2022-11-21 10:10] LABS: Alanine Aminotransferase 26 U/L (0-33); Albumin Level 4.5 g/dL (3.5-5.2); Alkaline Phosphatase 70 U/L (35-105); Aspartate Amino Transferase 22 U/L (0-32); Blood Urea Nitrogen 18 mg/dL (6-20); Calcium 10.2 mg/dL (8.5-10.5); Carbon Dioxide 21 mmol/L (22-29); Chloride 90 mmol/L (98-107); Globulin 3.7 g/dL (1.3-4.6); Glomerular Filtration Rate 79.9 mL/min (90-130); Glucose 97 mg/dL (65-115); Lipase 58 U/L (13-60); Osmolality Calculated 276 mOsm/kg (285-295); Sodium 132 mmol/L (136-145); Total Bilirubin 0.6 mg/dL (0.15-1.2); Total Protein 8.2 g/dL (6.6-8.7)
[2022-11-21 10:12] LABS: Anion Gap 24.1 (5-19); Potassium 3.1 mmol/L (3.5-5.1)
[2022-11-21 10:14] LABS: Add Urine Microscopic? YES; Bilirubin Urine 1+ (Negative); Blood Urine 2+ (Negative); Glucose Urine UA Norm (Normal); Ketones Urine 3+ (Negative); Leukocyte Esterase Urine Negative (Negative); Nitrate Urine Negative (Negative); Protein Urine 2+ (Negative); Specific Gravity, Urine 1.025 (1.005-1.030); Urine Appearance Hazy (CLEAR); Urine Color Yellow (Yellow); Urobilinogen Urine Neg (Negative); pH Urine 6 (5-7)
[2022-11-21 10:15] LABS: Add Urine Culture? No; Amorphous Sediment Urine 2+ /hpf; Mucus Urine 3+ /hpf; RBC Urine 0-4 /hpf (0-2); Squamous Epithelial Cell Urine 0-4 /hpf (0-5); WBC Urine RARE /hpf (0-5)
[2022-11-21 10:21] LABS: Add RBC Morph Yes; RBC Morph Comp No; Slide Review Slide Review Perform
[2022-11-21 10:22] LABS: Dimorphic RBC 2+; Giant Platelets Trace; Hypochromasia 2+
[2022-11-21 10:23] LABS: Anisocytosis 2+; Poikilocytosis 2+
[2022-11-21 10:28] LABS: HCG, Serum Qual Negative (Negative)
[2022-11-21] MEDS: ondansetron 2 mg/ML SDV 2 mL 4 MG IVP (10:41)
[2022-11-21] MEDS: sodium chloride 0.9% 1,000 ML 999 ML IV (10:42)
[2022-11-21] MEDS: potassium chloride ER 20 mEq Tablet PO (11:23)
[2022-11-21] MEDS: metoclopramide 5 mg/mL SDV 2 mL 10 MG IVP (12:00)
[2022-11-21 12:06] VITALS: BP 146/98; PULSE 124; RESP 18; O2SAT 99
== END 2022-11-21 13:57 | disposition home or self-care (01) ==
PROVIDERS: Emergency Provider Physician Assistant; PCP Nurse Practitioner Family
DX: R11.2 Nausea with vomiting, unspecified (principal); E87.6 Hypokalemia
CPT/HCPCS: 80053; 81001; 83690; 84703; 85025; 96361; 96374; 96375; 99284; J2405; J2765; J7030

== ENCOUNTER 2024-02-24 15:00 | Outpatient (CLI) | payer BC, MEDICAID, SELFPAY ==
--- NOTE | 2024-02-24 15:00 | MM_ITS ---
WS: [id number] Bilateral screening 3D tomosynthesis digital mammogram, 02/24/2024 Clinical Data: Z12.39 - Encounter for other screening for malignant neop... Comparison: 04/23/2022 Findings: The breast parenchymal pattern shows fibroglandular tissue. No spiculated masses or clustered calcifi cations are seen. There are no secondary signs of carcinoma. MM/[place] [id number] Impression: 1. Negative bilateral mammogram unchanged. 2. Recommend annual screening mammograms. BIRADS: 1-Negative FOLLOW UP: 1 Year Follow-up The CAD brick paving checker was used.
== END 2024-02-24 15:01 | disposition home or self-care (01) ==
LOC: MOBLMAM 15:09
PROVIDERS: PCP Nurse Practitioner Family; Visit Provider Nurse Practitioner Family
DX: Z12.31 Encounter for screening mammogram for malignant neoplasm of breast (principal)
CPT/HCPCS: 77063; 77067

== ENCOUNTER 2025-06-21 10:38 | Outpatient (CLI) | payer OTHER, SELFPAY ==
--- NOTE | 2025-06-21 10:40 | MM_ITS ---
WS: [id number] BILATERAL 3D TOMOSYNTHESIS DIGITAL SCREENING MAMMOGRAPHY WITH CAD CLINICAL INFORMATION: SCREENING HISTORY: Screening mammogram. No current complaints. COMPARISON: 2023 TECHNIQUE: Bilateral CC and MLO views. FINDINGS: Scattered fibroglandular densities bilaterally. No suspicious focal mass, asymmetry, calcifications, or architectural distortion. No evidence of malignancy. A few tiny punctate calcifications. MM/MM scr tomosynthesis [id number] IMPRESSION: DENSITY: There are scattered areas of fibroglandular density. BI-RADS: 2 - Benign. FOLLOW UP: 1 Year Follow-up Recommend return to annual screening mammography.
== END 2025-06-21 10:39 | disposition home or self-care (01) ==
LOC: MOBLMAM 10:42
PROVIDERS: PCP Family Medicine; Visit Provider Family Medicine
DX: Z12.31 Encounter for screening mammogram for malignant neoplasm of breast (principal)
CPT/HCPCS: 77063; 77067